=== PATIENT | female | born 1940 | race American Indian/Alaskan Native ===

== ENCOUNTER 2019-05-09 15:38 | Inpatient (IN) | payer MEDICARE ==
--- NOTE | 2019-05-09 16:01 | Event Note ---
ED Screening Note ED Screening Note: pt presents with generalized abdominal pain no N/V/D had small BM yesterday no urinary sx no fever This initial assessment/diagnostic orders/clinical plan/treatment(s) is/are subject to change based on patients health status, clinical progression and re- assessment by fellow clinical providers in the ED. Further treatment and workup at subsequent clinical providers discretion. Patient/guardian urged not to elope from the ED as their condition may be serious if not clinically assessed and managed. Initial orders include: labs, XR, EKG, UA
[2019-05-09 16:39] LABS: Hematocrit 31.2 % (30.3-42.9); Hemoglobin 9.8 gm/dl (10.1-14.3); Mean Corpuscular HGB Conc 31 % (30-34); Mean Corpuscular Volume 76 fl (79-97); Platelet Count 250 K/mm3 (140-440); Red Blood Count 4.13 M/mm3 (3.65-5.03); Red Cell Distribution Width 17.8 % (13.2-15.2)
--- NOTE | 2019-05-09 16:46 | XRay Report ---
ABDOMEN FLAT AND UPRIGHT WITH SINGLE VIEW CHEST HISTORY: generalized abd discomfort, hx of CHF COMPARISON: None. TECHNIQUE: Supine and upright abdominal as well as single view chest radiographs obtained. FINDINGS: Lungs: The lungs are clear. The lung volumes are normal. Pleural Effusion: No evidence of a pleural effusion is seen. Pneumothorax: No evidence of pneumothorax is seen. Cardiac: The heart size is normal. Mediastinal silhouette: The mediastinal silhouette is normal. Hilar regions: The hilar regions are normal in appearance. Pulmonary vascularity: The pulmonary vascularity is normal in appearance. Trachea: The trachea is midline. Skeletal structures: No acute findings. Support hardware: None. Additional findings: None. Bowel: The bowel gas pattern is normal in appearance. No evidence of obstruction is seen. No evidence of free air is identified. Calcifications: No abnormal calcifications over the kidneys or along the course of the ureters are se en. No phleboliths in the pelvis are seen. Osseous Structures: The skeletal structures are unremarkable in appearance. Additional findings: None. IMPRESSION: No acute findings. Signer Name: Jeromy Chávez MD Signed: 05/09/2019 4:42 PM Workstation Name: [id number]
[2019-05-09 17:05] LABS: Albumin 3.5 g/dL (3.9-5); Calcium 9.8 mg/dL (8.4-10.2)
[2019-05-09] MEDS ORDERED: NACL 0.9% 1000 ML 1,000 ML IV ONE ×2 (17:29→19:06)
[2019-05-09] MEDS ORDERED: D50W (25GM) Vial IV ONE (17:29)
[2019-05-09] MEDS ORDERED: HumuLIN R IV ONE (17:29)
[2019-05-09] MEDS ORDERED: PROVENTIL IH ONE (17:30)
[2019-05-09] MEDS ORDERED: KIONEX PO ONE (17:30)
[2019-05-09 17:49] LABS: Chol/HDL Ratio 2.85 %
--- NOTE | 2019-05-09 17:55 | Emergency Department Report ---
<ZACKARY WATTERS - Last Filed: 05/10/19 00:28> ED Abdominal Pain HPI - General Chief Complaint: Abdominal Pain Stated Complaint: ABD PAIN Time Seen by Provider: 05/09/19 15:59 - Related Data Home Medications Medication Instructions Recorded Confirmed Last Taken Allopurinol [Zyloprim] 300 mg PO QDAY 07/29/13 05/09/19 05/09/19 Amitriptyline [Elavil] 25 mg PO QHS 07/29/13 05/09/19 05/08/19 Aspirin [Aspirin BABY CHEW TAB] 81 mg PO QDAY 07/29/13 05/09/19 05/09/19 Atorvastatin [Lipitor] 40 mg PO QHS 07/29/13 05/09/19 05/09/19 ISOSORBIDE MONOnitrate [Monoket] 20 mg PO DAILY 07/29/13 05/09/19 05/09/19 Levothyroxine [Synthroid] 100 mcg PO QAM 07/29/13 05/09/19 05/09/19 Losartan [Cozaar] 50 mg PO QDAY 07/29/13 05/09/19 05/09/19 Metoprolol [Lopressor TAB] 50 mg PO BID 07/29/13 05/09/19 05/09/19 Nitroglycerin [Nitrostat] 0.4 mg SL Q5M PRN 07/29/13 05/09/19 05/09/19 Furosemide [Lasix] 20 mg PO DAILY 11/24/14 05/09/19 05/09/19 Zolpidem [Ambien] 5 mg PO QHS PRN 11/24/14 05/09/19 05/09/19 hydroCHLOROthiazide [Hctz] 25 mg PO QDAY 11/24/14 05/09/19 05/09/19 Previous Rx's Medication Instructions Recorded Last Taken Type Oxycodone HCl/Acetaminophen 1 each PO Q6HR PRN #30 tablet 11/24/14 05/09/19 Rx [Percocet 10-325 mg] Meloxicam [Mobic] 7.5 mg PO QDAY #7 tablet 01/26/19 05/09/19 Rx methOCARBAMOL [Robaxin TAB] 500 mg PO BID #10 tab 01/26/19 05/09/19 Rx Allergies Allergy/AdvReac Type Severity Reaction Status Date / Time No Known Allergies Allergy Verified 05/09/19 15:38 ED Past Medical Hx - Medications Home Medications: Home Medications Medication Instructions Recorded Confirmed Last Taken Type Allopurinol [Zyloprim] 300 mg PO QDAY 07/29/13 05/09/19 05/09/19 History Amitriptyline [Elavil] 25 mg PO QHS 07/29/13 05/09/19 05/08/19 History Aspirin [Aspirin BABY CHEW TAB] 81 mg PO QDAY 07/29/13 05/09/19 05/09/19 History Atorvastatin [Lipitor] 40 mg PO QHS 07/29/13 05/09/19 05/09/19 History ISOSORBIDE MONOnitrate [Monoket] 20 mg PO DAILY 07/29/13 05/09/19 05/09/19 History Levothyroxine [Synthroid] 100 mcg PO QAM 07/29/13 05/09/19 05/09/19 History Losartan [Cozaar] 50 mg PO QDAY 07/29/13 05/09/19 05/09/19 History Metoprolol [Lopressor TAB] 50 mg PO BID 07/29/13 05/09/19 05/09/19 History Nitroglycerin [Nitrostat] 0.4 mg SL Q5M PRN 07/29/13 05/09/19 05/09/19 History Furosemide [Lasix] 20 mg PO DAILY 11/24/14 05/09/19 05/09/19 History Oxycodone HCl/Acetaminophen 1 each PO Q6HR PRN #30 tablet 11/24/14 05/09/19 05/09/19 Rx [Percocet 10-325 mg] Zolpidem [Ambien] 5 mg PO QHS PRN 11/24/14 05/09/19 05/09/19 History hydroCHLOROthiazide [Hctz] 25 mg PO QDAY 11/24/14 05/09/19 05/09/19 History Meloxicam [Mobic] 7.5 mg PO QDAY #7 tablet 01/26/19 05/09/19 05/09/19 Rx methOCARBAMOL [Robaxin TAB] 500 mg PO BID #10 tab 01/26/19 05/09/19 05/09/19 Rx ED Course - Consultations Consultation #1: 08/21/19 20:39 Spoke w/ radiologist. Reports free air on CT adjacent to liver, likely duodenal or gastric ulcer. Dr Jimenez paged. 05/10/19 20:45 Spoke w/ Dr Jimenez. Would like repeat CT w/ PO contrast. 05/10/19 00:27 Spoke w/ Dr Jimenez regarding 2nd CT results. ED Medical Decision Making - Lab Data Result diagrams: 05/09/19 16:16 05/09/19 19:58 ED Disposition Clinical Impression: Acute renal failure, Acute hyperkalemia, Elevated troponin, Perforated abdominal viscus Disposition: OP ADMIT IP TO THIS HOSP Is pt being admited?: Yes Condition: Stable <NINI SAENZ - Last Filed: 05/10/19 10:09> ED Abdominal Pain HPI - General Source: patient Mode of arrival: Ambulatory Limitations: No Limitations - History of Present Illness Initial Comments: Patient is 79 years old female with history of hypertension and diabetes. Patient presented to the ER complaining of abdominal pain started 5 days ago, crampy in nature associated with nausea but no vomiting or diarrhea. Patient denied any fever or chills. Patient found to have a potassium of 6 and creatinine of 2.9 and a BUN of 71. Patient immediately received calcium chlori de, dextrose 50 and insulin, Kayexalate and albuterol breathing treatment for treatment of hyperkalemia. MD Complaint: abdominal pain -: days(s) Location: diffuse Radiation: none Migration to: no migration Severity scale (0 -10): 5 ED Review of Systems ROS: Stated complaint: ABD PAIN Other details as noted in HPI Comment: All other systems reviewed and negative Constitutional: denies: chills, fever ENT: denies: throat pain Cardiovascular: denies: chest pain Gastrointestinal: abdominal pain, nausea. denies: vomiting, diarrhea, constipation, hematemesis, melena, hematochezia Musculoskeletal: denies: back pain Neurological: denies: headache, weakness, numbness, paresthesias, confusion ED Past Medical Hx - Past Medical History Hx Hypertension: Yes Hx Heart Attack/AMI: Yes Hx Congestive Heart Failure: Yes Hx GERD: Yes Hx Psychiatric Treatment: Yes (anxiety) Additional medical history: hypothyroid, insommnia anemic, gout, high cholest - Surgical History Additional Surgical History: r) shoulder surg, hysterectomy - Social History Smoking Status: Never Smoker Substance Use Type: None ED Physical Exam - General Limitations: No Limitations General appearance: alert, in no apparent distress - Head Head exam: Present: atraumatic, normocephalic, normal inspection - Eye Eye exam: Present: normal appearance, PERRL - ENT ENT exam: Present: normal exam, normal orophraynx, mucous membranes moist - Neck Neck exam: Present: normal inspection, full ROM. Absent: tenderness, meningismus, lymphadenopathy, thyromegaly - Respiratory Respiratory exam: Present: normal lung sounds bilaterally - Cardiovascular Cardiovascular Exam: Present: regular rate, normal rhythm, normal heart sounds - GI/Abdominal GI/Abdominal exam: Present: soft, normal bowel sounds. Absent: distended, tenderness, guarding, rebound, rigid, organomegaly, mass, bruit, pulsatile mass, hernia - Extremities Exam Extremities exam: Present: normal inspection, full ROM, normal capillary refill. Absent: tenderness, pedal edema, calf tenderness - Back Exam Back exam: Present: normal inspection, full ROM. Absent: CVA tenderness (R), CVA tenderness (L), muscle spasm, paraspinal tenderness, vertebral tenderness - Neurological Exam Neurological exam: Present: alert - Psychiatric Psychiatric exam: Present: normal mood - Skin Skin exam: Present: warm, intact, normal color ED Course Vital Signs 05/09/19 05/09/19 05/09/19 16:00 18:01 18:54 Temperature 97.7 F Pulse Rate 60 74 Pulse Rate [ 83 Anterior Bilateral Throughout] Respiratory 18 19 Rate Respiratory 20 Rate [Anterior Bilateral Throughout] Blood Pressure 140/63 144/65 Blood Pressure [Left] O2 Sat by Pulse 97 97 Oximetry 05/09/19 05/09/19 05/09/19 19:01 19:35 20:00 Temperature 98 F Pulse Rate 86 86 91 H Pulse Rate [ Anterior Bilateral Throughout] Respiratory 19 18 16 Rate Respiratory Rate [Anterior Bilateral Throughout] Blood Pressure 144/65 161/68 Blood Pressure 161/84 [Left] O2 Sat by Pulse 98 100 99 Oximetry 05/09/19 05/09/19 05/09/19 21:00 22:00 23:09 Temperature Pulse Rate 92 H 89 90 Pulse Rate [ Anterior Bilateral Throughout] Respiratory 19 20 21 Rate Respiratory Rate [Anterior Bilateral Throughout] Blood Pressure 163/75 169/80 169/80 Blood Pressure [Left] O2 Sat by Pulse 92 92 97 Oximetry 05/09/19 05/09/19 05/09/19 23:11 23:20 23:31 Temperature Pulse Rate 93 H 81 78 Pulse Rate [ Anterior Bilateral Throughout] Respiratory 16 26 H 22 Rate Respiratory Rate [Anterior Bilateral Throughout] Blood Pressure 169/80 148/58 145/64 Blood Pressure [Left] O2 Sat by Pulse 95 98 98 Oximetry 05/09/19 05/09/19 05/10/19 23:41 23:50 00:01 Temperature Pulse Rate 78 78 76 Pulse Rate [ Anterior Bilateral Throughout] Respiratory 20 20 22 Rate Respiratory Rate [Anterior Bilateral Throughout] Blood Pressure 141/69 142/63 147/50 Blood Pressure [Left] O2 Sat by Pulse 97 96 97 Oximetry 05/10/19 05/10/19 05/10/19 00:11 00:20 00:31 Temperature Pulse Rate 83 Pulse Rate [ Anterior Bilateral Throughout] Respiratory 19 Rate Respiratory Rate [Anterior Bilateral Throughout] Blood Pressure 147/50 142/63 142/63 Blood Pressure [Left] O2 Sat by Pulse 96 98 96 Oximetry 05/10/19 05/10/19 05/10/19 00:41 00:53 01:01 Temperature Pulse Rate 80 78 Pulse Rate [ Anterior Bilateral Throughout] Respiratory 14 24 Rate Respiratory Rate [Anterior Bilateral Throughout] Blood Pressure 142/63 142/63 142/63 Blood Pressure [Left] O2 Sat by Pulse 95 Oximetry 05/10/19 05/10/19 05/10/19 01:11 01:21 01:50 Temperature Pulse Rate 78 77 Pulse Rate [ Anterior Bilateral Throughout] Respiratory 21 21 18 Rate Respiratory Rate [Anterior Bilateral Throughout] Blood Pressure 142/63 142/63 Blood Pressure [Left] O2 Sat by Pulse 98 Oximetry 05/10/19 01:56 Temperature 98.3 F Pulse Rate 77 Pulse Rate [ Anterior Bilateral Throughout] Respiratory 18 Rate Respiratory Rate [Anterior Bilateral Throughout] Blood Pressure 166/75 Blood Pressure [Left] O2 Sat by Pulse 94 Oximetry ED Medical Decision Making - Lab Data Result diagrams: 05/10/19 09:22 05/09/19 19:58 - Radiology Data Radiology results: report reviewed - Medical Decision Making Patient is 79 years old female with history of hypertension and diabetes. Patient presented to the ER complaining of abdominal pain started 5 days ago, crampy in nature associated with nausea but no vomiting or diarrhea. Patient denied any fever or chills. Patient found to have a potassium of 6 and creatinine of 2.9 and a BUN of 71. Patient immediately received calcium chloride, dextrose 50 and insulin, Kayexalate and albuterol breathing treatment for treatment of hyperkalemia. I discussed the patient is Dr. Quezada, nephrology, he advised to continue medical treatment and will follow-up with the patient in the morning. Critical Care Time: Yes Critical care time in (mins) excluding proc time.: 30 Critical care attestation.: If time is entered above; I have spent that time in minutes in the direct care of this critically ill patient, excluding procedure time. ED Disposition Is pt being admited?: Yes
[2019-05-09] MEDS ORDERED: CALCIUM CHLORIDE 1,000 MG in NACL 0.9% 100 ML IV ONE (18:00)
[2019-05-09] MEDS ORDERED: D50W (25GM) Syringe IV ONE (18:00)
[2019-05-09 20:29] LABS: Anisocytosis 1+; Basophils % (Manual) 0 % (0.0-1.8); Eosinophils % (Manual) 0 % (0.0-4.3); Total Cells Counted 100
[2019-05-09 20:30] LABS: Hypochromasia 2+; Ovalocytes 1+; Platelet Estimate Consistent w Auto; Schistocytes 1+
--- NOTE | 2019-05-09 20:36 | Cat Scan Report ---
CT ABDOMEN AND PELVIS WITHOUT CONTRAST HISTORY: Abdominal pain. COMPARISON: CT of the abdomen and pelvis on 07/29/2013. TECHNIQUE: Routine abdominal and pelvic CT exam performed without contrast. Lack of intravenous cont rast limits evaluation of the vascular and solid organs.. All CT scans at this location are performed using CT dose reduction for ALARA by means of automated exposure control. FINDINGS: CT ABDOMEN: Lung Bases: Trace subsegmental atelectasis in the right lower lobe. Liver: No significant abnormality. Biliary: No significant abnormality. Spleen: No significant abnormality. Unenlarged. Pancreas: No significant abnormality. Adrenals: No significant abnormality. Kidneys: No significant abnormality. Lymphatics: No lymphadenopathy. Vasculature: Atherosclerotic but nonaneurysmal abdominal aorta. Bowel/Peritoneum: There is a small amount of free air adjacent to the gallbladder and along the infer ior margin of the liver. There is also a small amount of free fluid in the abdomen. No definite focal inflammatory changes are identified. There is no pneumatosis or bowel obstruction. CT PELVIC: : No significant abnormality. Lymphatics: No lymphadenopathy. Osseous Structures: No aggressive appearing osseous lesions. Additional Findings: None IMPRESSION: 1. Small amount free air adjacent to the gallbladder and along the inferior margin of the liver joey rning for possible perforated viscus, probable distal gastric or duodenal ulcer. Signer Name: Jeromy Chávez MD Signed: 05/09/2019 8:32 PM Workstation Name: [id number]
[2019-05-09] MEDS ORDERED: ZOFRAN IV ONE (20:50)
[2019-05-09] MEDS ORDERED: MORPHINE IV ONE (20:50)
[2019-05-09] MEDS ORDERED: ZOSYN/NS 4.5GM/100ML 4.5 GM/100 ML VIAL IV ONE (21:14)
--- NOTE | 2019-05-09 21:15 | Event Note ---
Date: 05/09/[address] Shaffer. Pt is stable. Pain is stable. Not increasing. Problem began 3 days ago. CBC unremarkable. CT has focal collection of air. I am suspicious that she may have had a small perforation and then sealed it off. Will redo CT with oral contrast. If there is a leak, will proceed to OR tonight for Dx laparoscopy. If no leak, then will place NGT, IV Abx, and admit to Medicine for resuscitation. Full set of labs in AM. Dr. Shaffer will call if CT report indicates leak.
[2019-05-09 21:20] LABS: Calcium 10.3 mg/dL (8.4-10.2)
--- NOTE | 2019-05-09 23:53 | Cat Scan Report ---
CT abdomen pelvis wo con INDICATION / CLINICAL INFORMATION: Abdominal pain and free air seen on previous CT. TECHNIQUE: Oral Gastrografin was administered. All CT scans at this location are performed using CT dose reducti on for ALARA by means of automated exposure control. COMPARISON: Earlier today at 7:25 PM. FINDINGS: ABDOMEN: There is a linear extraluminal contrast collection along the inferior margin of the left lob e of the liver near the ligamentum teres. This appears to connect with the duodenal bulb. There is as sociated mucosal thickening involving the duodenal bulb and descending duodenum. Extraluminal gas in the cole hepatis is again noted. No other change is seen. PELVIS: There is a fat-containing periumbilical hernia without complication. No new abnormality is se en in the pelvis. IMPRESSION:This study confirms bowel perforation with extraluminal contrast noted along the inferior aspect of the left lobe of the liver, probably related to a perforated duodenal ulcer. Signer Name: Davion Valdez MD Signed: 05/09/2019 11:49 PM Workstation Name: [id number]
--- NOTE | 2019-05-10 00:26 | Event Note ---
Date: 05/10/[address] For the large amount of contrast that is present in the duodenum, there is only a trace amount that leaked out. Therefore, there is only a very minimal opening. The patient continues to be stable per Dr. Shaffer. Will continue with plan for admission and resuscitation. Pt will also need IV PPI.
[2019-05-10] MEDS ORDERED: MORPHINE IV PRN (00:48)
[2019-05-10] MEDS ORDERED: TYLENOL PO PRN (00:48)
[2019-05-10] MEDS ORDERED: SODIUM CHLORIDE FLUSH SYRINGE 10 ML IV PRN (00:48)
[2019-05-10] MEDS ORDERED: ZOFRAN IV PRN (00:48)
[2019-05-10] MEDS ORDERED: HumuLIN R IV ONE (00:51)
[2019-05-10] MEDS ORDERED: D50W (25GM) Syringe IV ONE (00:56)
--- NOTE | 2019-05-10 03:17 | History and Physical Report ---
History of Present Illness Date of examination: 05/10/19 Date of admission: 05/10/19 00:48 Chief complaint: Abdominal pain History of present illness: Patient is a 79-year-old -Portuguese female with history of CAD and GERD who presented to the ED on account of 4 days history of right lower quadrant abdominal pain. She described it as sharp in character, rated 10 over 10, constant in duration and radiating upwards. Pain is worse with food and liquid intake. No known relieving factors. She has associated generalized weakness with easy fatigability, chills without fever and lightheadedness. She also admits to passage of dark stool. She denies constipation, diarrhea, dysuria or frequency. No chest pain, shortness of breath, palpitation, headaches, nausea, vomiting, syncope or loss of consciousness. Past History Past Medical History: CAD, GERD, hypertension, hyperlipidemia, hypothyroidism Past Surgical History: hysterectomy, Other (right shoulder surgery) Social history: no significant social history (she denies tobacco, alcohol or illicit drug use) Family history: diabetes (grandmother) Medications and Allergies Allergies Allergy/AdvReac Type Severity Reaction Status Date / Time No Known Allergies Allergy Verified 05/09/19 15:38 Home Medications Medication Instructions Recorded Confirmed Last Taken Type Allopurinol [Zyloprim] 300 mg PO QDAY 07/29/13 05/09/19 05/09/19 History Amitriptyline [Elavil] 25 mg PO QHS 07/29/13 05/09/19 05/08/19 History Aspirin [Aspirin BABY CHEW TAB] 81 mg PO QDAY 07/29/13 05/09/19 05/09/19 History Atorvastatin [Lipitor] 40 mg PO QHS 07/29/13 05/09/19 05/09/19 History ISOSORBIDE MONOnitrate [Monoket] 20 mg PO DAILY 07/29/13 05/09/19 05/09/19 History Levothyroxine [Synthroid] 100 mcg PO QAM 07/29/13 05/09/19 05/09/19 History Losartan [Cozaar] 50 mg PO QDAY 07/29/13 05/09/19 05/09/19 History Metoprolol [Lopressor TAB] 50 mg PO BID 07/29/13 05/09/19 05/09/19 History Nitroglycerin [Nitrostat] 0.4 mg SL Q5M PRN 07/29/13 05/09/19 05/09/19 History Furosemide [Lasix] 20 mg PO DAILY 11/24/14 05/09/19 05/09/19 History Oxycodone HCl/Acetaminophen 1 each PO Q6HR PRN #30 tablet 11/24/14 05/09/19 05/09/19 Rx [Percocet 10-325 mg] Zolpidem [Ambien] 5 mg PO QHS PRN 11/24/14 05/09/19 05/09/19 History hydroCHLOROthiazide [Hctz] 25 mg PO QDAY 11/24/14 05/09/19 05/09/19 History Meloxicam [Mobic] 7.5 mg PO QDAY #7 tablet 01/26/19 05/09/19 05/09/19 Rx methOCARBAMOL [Robaxin TAB] 500 mg PO BID #10 tab 01/26/19 05/09/19 05/09/19 Rx Active Meds: Active Medications Acetaminophen (Tylenol) 650 mg PO Q4H PRN PRN Reason: Pain MILD(1-3)/Fever >100.5/VALERA Famotidine (Pepcid) 10 mg IV BID [facility] Heparin Sodium (Porcine) (Heparin) 5,000 unit SUB-Q Q12HR JACIEL Hydralazine HCl (Apresoline) 10 mg IV Q4HR PRN PRN Reason: Blood Pressure Piperacillin Sod/Tazobactam Sod (Zosyn/Ns 3.375gm/50ml) 3.375 gm in 50 mls @ 100 mls/hr IV Q8HR JACIEL; Protocol Sodium Chloride (Nacl 0.9% 1000 Ml) 1,000 mls @ 125 mls/hr IV DIRECT JACIEL Morphine Sulfate (Morphine) 2 mg IV Q4H PRN PRN Reason: Pain, Moderate (4-6) Ondansetron HCl (Zofran) 4 mg IV Q8H PRN PRN Reason: Nausea And Vomiting Sodium Chloride (Sodium Chloride Flush Syringe 10 Ml) 10 ml IV BID [facility] Sodium Chloride (Sodium Chloride Flush Syringe 10 Ml) 10 ml IV PRN PRN PRN Reason: LINE FLUSH Review of Systems All systems: negative (all other systems reviewed with the patient and are negative unless otherwise stated) Exam - Constitutional Vitals: Temp Pulse Resp BP Pulse Ox 98.2 F 88 18 147/50 99 05/10/19 02:04 05/10/19 02:04 05/10/19 02:04 05/10/19 02:04 05/10/19 02:04 General appearance: Present: no acute distress, obese - EENT Eyes: Present: PERRL, EOM intact ENT: hearing intact, clear oral mucosa - Neck Neck: Present: supple, normal ROM - Respiratory Respiratory effort: normal Respiratory: bilateral: CTA - Cardiovascular Rhythm: regular Heart Sounds: Present: S1 & S2. Absent: rub, click - Extremities Extremity abnormal: edema (trace edema noted in bilateral lower extremities) Peripheral Pulses: within normal limits - Abdominal General gastrointestinal: Present: soft, tender (right lower and upper quadrants, epigastric, and umbilical), non-distended, normal bowel sounds Female genitourinary: Present: deferred - Integumentary Integumentary: Present: clear, warm, dry - Musculoskeletal Musculoskeletal: gait normal, strength equal bilaterally - Psychiatric Psychiatric: appropriate mood/affect, intact judgment & insight - Neurologic Neurologic: CNII-XII intact, moves all extremities Results - Labs CBC & Chem 7: 05/09/19 16:16 05/09/19 19:58 Labs: Laboratory Last Values WBC 6.8 K/mm3 (4.5-11.0) 05/09/19 16:16 RBC 4.13 M/mm3 (3.65-5.03) 05/09/19 16:16 Hgb 9.8 gm/dl (10.1-14.3) L 05/09/19 16:16 Hct 31.2 % (30.3-42.9) 05/09/19 16:16 MCV 76 fl (79-97) L 05/09/19 16:16 MCH 24 pg (28-32) L 05/09/19 16:16 MCHC 31 % (30-34) 05/09/19 16:16 RDW 17.8 % (13.2-15.2) H 05/09/19 16:16 Plt Count 250 K/mm3 (140-440) 05/09/19 16:16 Add Manual Diff Complete 05/09/19 16:16 Total Counted 100 05/09/19 16:16 Seg Neuts % (Manual) 71.0 % (40.0-70.0) H 05/09/19 16:16 0 % 05/09/19 16:16 27.0 % (13.4-35.0) 05/09/19 16:16 Reactive Lymphs % (Man) 0 % 05/09/19 16:16 2.0 % (0.0-7.3) 05/09/19 16:16 0 % (0.0-4.3) 05/09/19 16:16 0 % (0.0-1.8) 05/09/19 16:16 0 % 05/09/19 16:16 0 % 05/09/19 16:16 0 % 05/09/19 16:16 0 % 05/09/19 16:16 Nucleated RBC % Not Reportable 05/09/19 16:16 Seg Neutrophils # Man 4.8 K/mm3 (1.8-7.7) 05/09/19 16:16 Band Neutrophils # 0.0 K/mm3 05/09/19 16:16 1.8 K/mm3 (1.2-5.4) 05/09/19 16:16 Abs React Lymphs (Man) 0.0 K/mm3 05/09/19 16:16 0.1 K/mm3 (0.0-0.8) 05/09/19 16:16 0.0 K/mm3 (0.0-0.4) 05/09/19 16:16 0.0 K/mm3 (0.0-0.1) 05/09/19 16:16 0.0 K/mm3 05/09/19 16:16 0.0 K/mm3 05/09/19 16:16 0.0 K/mm3 05/09/19 16:16 Blast Cells # 0.0 K/mm3 05/09/19 16:16 WBC Morphology Not Reportable 05/09/19 16:16 Hypersegmented Neuts Not Reportable 05/09/19 16:16 Hyposegmented Neuts Not Reportable 05/09/19 16:16 Hypogranular Neuts Not Reportable 05/09/19 16:16 Not Reportable 05/09/19 16:16 Not Reportable 05/09/19 16:16 Not Reportable 05/09/19 16:16 Not Reportable 05/09/19 16:16 Not Reportable 05/09/19 16:16 Not Reportable 05/09/19 16:16 Consistent w auto 05/09/19 16:16 Not Reportable 05/09/19 16:16 Plt Clumps, EDTA Not Reportable 05/09/19 16:16 Not Reportable 05/09/19 16:16 Not Reportable 05/09/19 16:16 Not Reportable 05/09/19 16:16 Plt Morphology Comment Not Reportable 05/09/19 16:16 RBC Morphology Not Reportable 05/09/19 16:16 Dimorphic RBCs Not Reportable 05/09/19 16:16 Not Reportable 05/09/19 16:16 2+ 05/09/19 16:16 Not Reportable 05/09/19 16:16 1+ 05/09/19 16:16 Not Reportable 05/09/19 16:16 Not Reportable 05/09/19 16:16 Not Reportable 05/09/19 16:16 Not Reportable 05/09/19 16:16 Not Reportable 05/09/19 16:16 Not Reportable 05/09/19 16:16 Not Reportable 05/09/19 16:16 1+ 05/09/19 16:16 Not Reportable 05/09/19 16:16 Not Reportable 05/09/19 16:16 Not Reportable 05/09/19 16:16 Not Reportable 05/09/19 16:16 Not Reportable 05/09/19 16:16 Not Reportable 05/09/19 16:16 1+ 05/09/19 16:16 Acanthocytes (Spur) Not Reportable 05/09/19 16:16 Rouleaux Not Reportable 05/09/19 16:16 Not Reportable 05/09/19 16:16 1+ 05/09/19 16:16 Not Reportable 05/09/19 16:16 Not Reportable 05/09/19 16:16 Hem Pathologist Commnt No 05/09/19 16:16 Sodium 134 mmol/L (137-145) L 05/09/19 19:58 Potassium 5.7 mmol/L (3.6-5.0) H 05/09/19 19:58 Chloride 102.8 mmol/L (98-107) 05/09/19 19:58 Carbon Dioxide 17 mmol/L (22-30) L 05/09/19 19:58 20 mmol/L 05/09/19 19:58 BUN 68 mg/dL (7-17) H 05/09/19 19:58 2.7 mg/dL (0.7-1.2) H 05/09/19 19:58 Estimated GFR 21 ml/min 05/09/19 19:58 25 % 05/09/19 19:58 Glucose 93 mg/dL (65-100) 05/09/19 19:58 POC Glucose 75 (70-105) 05/09/19 18:36 Calcium 10.3 mg/dL (8.4-10.2) H 05/09/19 19:58 0.40 mg/dL (0.1-1.2) 05/09/19 16:16 AST 52 units/L (5-40) H 05/09/19 16:16 ALT 70 units/L (7-56) H 05/09/19 16:16 166 units/L (35-129) H 05/09/19 16:16 0.175 ng/mL (0.00-0.029) H* 05/09/19 16:16 NT-Pro-B Natriuret Pep 585.0 pg/mL (0-900) 05/09/19 16:16 7.4 g/dL (6.3-8.2) 05/09/19 16:16 3.5 g/dL (3.9-5) L 05/09/19 16:16 0.9 % 05/09/19 16:16 Triglycerides 110 mg/dL (2-149) 05/09/19 16:16 Cholesterol 114 mg/dL (50-199) 05/09/19 16:16 66 mg/dL (50-130) 05/09/19 16:16 40 mg/dL (40-59) 05/09/19 16:16 2.85 % 05/09/19 16:16 32 units/L (13-60) 05/09/19 16:16 - Imaging and Cardiology CT scan - abdomen: report reviewed CT scan - pelvis: report reviewed Assessment and Plan Assessment and plan: Bowel perforation -Probably 2/2 perforated duodenal ulcer -NG tube in place for bowel decompression -On IV Protonix and antibiotic -Monitor H&H -Surgery consulted in the ED Acute on CKD stage 3 -On IV fluid, we'll monitor creatinine level Hyperkalemia -Status post treatment in the ED -We'll monitor K level and continue treatment as needed Elevated troponin -Probably demand ischemia due to the acute process -Patient denies acute chest pain -We'll continue serial troponin level monitoring -We'll order echocardiogram Hyponatremia -On IV fluid, will monitor sodium level Transaminitis -Likely secondary to the acute process -On IV fluid, we'll monitor levels Mild Hypocalcemia -On IV fluid, will monitor calcium level Hypertension -BP stable -On PRN IV hydralazine Hyperlipidemia -Will hold statin since patient is NPO Hypothyroidism -Will hold synthroid since patient is NPO Obesity with BMI of 38.8 -Lifestyle modification recommended DVT prophylaxis with SCD Disposition: Patient will be admitted in inpatient status with plan for discharge when medically stable Time spent: 40 minutes
[2019-05-10] MEDS: NACL 0.9% 1000 ML 1,000 ML IV SCH ×3 (04:06→19:42)
[2019-05-10] MEDS: PROTONIX IV SCH ×3 (04:08→22:46)
[2019-05-10 06:51] LABS: Bilirubin,Urine NEG (Negative); Blood,Urine NEG (Negative); Color,Urine Straw (Yellow); Protein,Urine <15 mg/dL mg/dL (Negative); Urobilinogen,Urine < 2.0 mg/dL (<2.0)
--- NOTE | 2019-05-10 09:14 | Consultation ---
History of Present Illness Consult date: 05/10/19 Reason for consult: abdominal pain Requesting physician: ZACKARY WATTERS Chief complaint: right sided abdominal pain since Tuesday - History of present illness History of present illness: 79yo F with GERD and CAD presents with a three-day history of upper and right- sided abdominal pain. It began on Tuesday of this week. Denies any fevers or chills. Did have nausea. He was able to drink water yesterday but in limited amounts. Attempts at eating increased her pain. She had a bowel movement yesterday and all night after the oral contrast. She does not feel bloated. He r pain is better today than when she presented to the emergency room and also compared to Tuesday when the pain started. The pain is localized to the right side of the abdomen. She only takes a baby aspirin on a regular basis. Does not regularly use other NSAIDs. Past History Past Medical History: CAD, GERD, hypertension, hyperlipidemia, hypothyroidism Past Surgical History: hysterectomy, Other (right shoulder surgery) Social history: no significant social history (she denies tobacco, alcohol or illicit drug use) Family history: diabetes (grandmother) Medications and Allergies Allergies Allergy/AdvReac Type Severity Reaction Status Date / Time No Known Allergies Allergy Verified 05/09/19 15:38 Home Medications Medication Instructions Recorded Confirmed Last Taken Type Allopurinol [Zyloprim] 300 mg PO QDAY 07/29/13 05/09/19 05/09/19 History Amitriptyline [Elavil] 25 mg PO QHS 07/29/13 05/09/19 05/08/19 History Aspirin [Aspirin BABY CHEW TAB] 81 mg PO QDAY 07/29/13 05/09/19 05/09/19 History Atorvastatin [Lipitor] 40 mg PO QHS 07/29/13 05/09/19 05/09/19 History ISOSORBIDE MONOnitrate [Monoket] 20 mg PO DAILY 07/29/13 05/09/19 05/09/19 History Levothyroxine [Synthroid] 100 mcg PO QAM 07/29/13 05/09/19 05/09/19 History Losartan [Cozaar] 50 mg PO QDAY 07/29/13 05/09/19 05/09/19 History Metoprolol [Lopressor TAB] 50 mg PO BID 1105/09/19 05/09/19 History Nitroglycerin [Nitrostat] 0.4 mg SL Q5M PRN 07/29/13 05/09/19 05/09/19 History Furosemide [Lasix] 20 mg PO DAILY 11/24/14 05/09/19 05/09/19 History Oxycodone HCl/Acetaminophen 1 each PO Q6HR PRN #30 tablet 11/24/14 05/09/19 05/09/19 Rx [Percocet 10-325 mg] Zolpidem [Ambien] 5 mg PO QHS PRN 11/24/14 05/09/19 05/09/19 History hydroCHLOROthiazide [Hctz] 25 mg PO QDAY 11/24/14 05/09/19 05/09/19 History Meloxicam [Mobic] 7.5 mg PO QDAY #7 tablet 01/26/19 05/09/19 05/09/19 Rx methOCARBAMOL [Robaxin TAB] 500 mg PO BID #10 tab 01/26/19 05/09/19 05/09/19 Rx Active Meds: Active Medications Acetaminophen (Tylenol) 650 mg PO Q4H PRN PRN Reason: Pain MILD(1-3)/Fever >100.5/VALERA Hydralazine HCl (Apresoline) 10 mg IV Q4HR PRN PRN Reason: Blood Pressure Piperacillin Sod/Tazobactam Sod (Zosyn/Ns 3.375gm/50ml) 3.375 gm in 50 mls @ 100 mls/hr IV Q8H JACIEL; Protocol Sodium Chloride (Nacl 0.9% 1000 Ml) 1,000 mls @ 125 mls/hr IV DIRECT JACIEL Last Admin: 05/10/19 04:06 Dose: 125 mls/hr Documented by: Morphine Sulfate (Morphine) 2 mg IV Q4H PRN PRN Reason: Pain, Moderate (4-6) Ondansetron HCl (Zofran) 4 mg IV Q8H PRN PRN Reason: Nausea And Vomiting Pantoprazole Sodium (Protonix) 40 mg IV BID [facility] Last Admin: 05/10/19 04:08 Dose: 40 mg Documented by: Sodium Chloride (Sodium Chloride Flush Syringe 10 Ml) 10 ml IV BID [facility] Sodium Chloride (Sodium Chloride Flush Syringe 10 Ml) 10 ml IV PRN PRN PRN Reason: LINE FLUSH Review of Systems - Constitutional no fever, no chills, no chronic pain - Cardiovascular no chest pain, no shortness of breath - Respiratory no cough - Gastrointestinal abdominal pain, nausea, no hematemesis, no coffee ground emesis, no dyspepsia/bloating - Genitourinary Genitourinary: flank pain (right) Menstruation: post hysterectomy - Muskuloskeletal no low back pain - Integumentary no rash, no pruritis, no redness, no sores, no wounds Exam Vital Signs Temp Pulse Resp BP Pulse Ox 97.7 F 60 18 140/63 97 05/09/19 16:00 05/09/19 16:00 05/09/19 16:00 05/09/19 16:00 05/09/19 16:00 - General physical appearance Positive: no distress, no pain, other (pleasant, elderly woman. At times difficult to understand her speech due to low volume. Does not appear septic.) - Eyes Positive: normal occular movement. Negative: icteric - ENT Positive: other (NGT in place. Minimal light yellow drainage) - Respiratory Positive: normal expansion, normal respiratory effort, clear to auscultation - Cardiovascular Rhythm: regular Heart Sounds: Present: systolic murmur - Abdomen Abdomen: Present: soft, tender (mainly on right side. No tenderness in LUQ. Minimal in LLQ), bowel sounds hypoactive. Absent: distended, masses, rebound, guarding, rigid, wound - Integumentary no rash, no growths, no abnormal pigmentation - Neurologic Neurologic: alert and oriented to time, place and person - Psychiatric Psychiatric: appropriate mood/affect, intact judgment & insight, cooperative Results - Labs 05/10/19 09:22 05/10/19 09:22 Abnormal lab results 05/09/19 05/09/19 05/09/19 Range/Units 16:16 16:16 19:58 Hgb 9.8 L (10.1-14.3) gm/dl MCV 76 L (79-97) fl MCH 24 L (28-32) pg RDW 17.8 H (13.2-15.2) % Seg Neuts % (Manual) 71.0 H (40.0-70.0) % Sodium 132 L 134 L (137-145) mmol/L Potassium 6.0 H 5.7 H (3.6-5.0) mmol/L Carbon Dioxide 17 L (22-30) mmol/L BUN 71 H 68 H (7-17) mg/dL Creatinine 2.9 H 2.7 H (0.7-1.2) mg/dL Calcium 10.3 H (8.4-10.2) mg/dL AST 52 H (5-40) units/L ALT 70 H (7-56) units/L Alkaline Phosphatase 166 H (35-129) units/L Troponin T 0.175 H* (0.00-0.029) ng/mL Albumin 3.5 L (3.9-5) g/dL 05/10/19 05/10/19 Range/Units 04:24 06:19 Hgb (10.1-14.3) gm/dl MCV (79-97) fl MCH (28-32) pg RDW (13.2-15.2) % Seg Neuts % (Manual) (40.0-70.0) % Sodium (137-145) mmol/L Potassium (3.6-5.0) mmol/L Carbon Dioxide (22-30) mmol/L BUN (7-17) mg/dL Creatinine (0.7-1.2) mg/dL Calcium (8.4-10.2) mg/dL AST (5-40) units/L ALT (7-56) units/L Alkaline Phosphatase (35-129) units/L Troponin T 0.099 H 0.131 H* D (0.00-0.029) ng/mL Albumin (3.9-5) g/dL Diabetes panel 05/09/19 05/09/19 Range/Units 16:16 19:58 Sodium 132 L 134 L (137-145) mmol/L Potassium 6.0 H 5.7 H (3.6-5.0) mmol/L Chloride 99.1 102.8 (98-107) mmol/L Carbon Dioxide 22 17 L (22-30) mmol/L BUN 71 H 68 H (7-17) mg/dL Creatinine 2.9 H 2.7 H (0.7-1.2) mg/dL Glucose 100 93 (65-100) mg/dL Calcium 9.8 10.3 H (8.4-10.2) mg/dL AST 52 H (5-40) units/L ALT 70 H (7-56) units/L Alkaline Phosphatase 166 H (35-129) units/L Total Protein 7.4 (6.3-8.2) g/dL Albumin 3.5 L (3.9-5) g/dL Triglycerides 110 (2-149) mg/dL HDL Cholesterol 40 (40-59) mg/dL Calcium panel 05/09/19 05/09/19 Range/Units 16:16 19:58 Calcium 9.8 10.3 H (8.4-10.2) mg/dL Albumin 3.5 L (3.9-5) g/dL Pituitary panel 05/09/19 05/09/19 Range/Units 16:16 19:58 Sodium 132 L 134 L (137-145) mmol/L Potassium 6.0 H 5.7 H (3.6-5.0) mmol/L Chloride 99.1 102.8 (98-107) mmol/L Carbon Dioxide 22 17 L (22-30) mmol/L BUN 71 H 68 H (7-17) mg/dL Creatinine 2.9 H 2.7 H (0.7-1.2) mg/dL Glucose 100 93 (65-100) mg/dL Calcium 9.8 10.3 H (8.4-10.2) mg/dL Adrenal panel 05/09/19 05/09/19 Range/Units 16:16 19:58 Sodium 132 L 134 L (137-145) mmol/L Potassium 6.0 H 5.7 H (3.6-5.0) mmol/L Chloride 99.1 102.8 (98-107) mmol/L Carbon Dioxide 22 17 L (22-30) mmol/L BUN 71 H 68 H (7-17) mg/dL Creatinine 2.9 H 2.7 H (0.7-1.2) mg/dL Glucose 100 93 (65-100) mg/dL Calcium 9.8 10.3 H (8.4-10.2) mg/dL Total Bilirubin 0.40 (0.1-1.2) mg/dL AST 52 H (5-40) units/L ALT 70 H (7-56) units/L Alkaline Phosphatase 166 H (35-129) units/L Total Protein 7.4 (6.3-8.2) g/dL Albumin 3.5 L (3.9-5) g/dL - Imaging CT scan - abdomen: report reviewed, image reviewed CT scan - pelvis: report reviewed, image reviewed Assessment and Plan - Patient Problems (1) Perforated abdominal viscus Current Visit: Yes Status: Acute Plan to address problem: Pt stable. Presumably had a peptic ulcer perforation. Patient is clinically stable. Does not have an acute abdomen. Pain is better compared to yesterday and Tuesday. We'll continue with conservative management for now. Rec: 1) NPO and NGT 2) If there are no worsening of her condition, will do UGI test on Tuesday. If no leak, will remove NGT and start clears. 3) If she decompensates, will proceed to surgery. 4) IV Abx and PPI 5) Pain control Pt in agreement with plan. Will follow along. Please call with questions. time=30min
[2019-05-10 09:56] LABS: Hematocrit 31.2 % (30.3-42.9); Hemoglobin 9.8 gm/dl (10.1-14.3); Mean Corpuscular HGB Conc 31 % (30-34); Mean Corpuscular Volume 76 fl (79-97); Platelet Count 235 K/mm3 (140-440); Red Blood Count 4.12 M/mm3 (3.65-5.03); Red Cell Distribution Width 17.6 % (13.2-15.2)
[2019-05-10] MEDS ORDERED: PEPCID IV SCH (10:00)
[2019-05-10] MEDS ORDERED: HEPARIN SUB-Q SCH (10:00)
[2019-05-10 10:12] LABS: Calcium 9.7 mg/dL (8.4-10.2)
[2019-05-10] MEDS: SODIUM CHLORIDE FLUSH SYRINGE 10 ML IV SCH ×2 (10:20→22:47)
[2019-05-10] MEDS: ZOSYN/NS 3.375GM/50ML 3.375 GM/50 ML BAG IV SCH ×2 (10:25→18:45)
[2019-05-10 11:03] LABS: Anisocytosis 1+; Basophils % (Manual) 0 % (0.0-1.8); Eosinophils % (Manual) 0 % (0.0-4.3); Hypochromasia 1+; Ovalocytes 1+; Total Cells Counted 100
[2019-05-10 11:04] LABS: Platelet Estimate Consistent w Auto
--- NOTE | 2019-05-10 15:46 | Event Note ---
Date: 05/10/19 I stopped by for a routine check. Patient was sleeping. Appeared comfortable. Vital signs remained normal.
--- NOTE | 2019-05-10 17:23 | Event Note ---
Date: 05/10/19 Routine check. Patient is awake and watching TV. She looks better. Appears to have more energy. She reports that her pain is less. She has no needs at this time.
--- NOTE | 2019-05-10 18:33 | Consultation ---
History of Present Illness - Reason for Consult Consult date: 05/10/19 acute renal failure Requesting physician: NINI SAENZ - History of Present Illness 79-year-old lady with a history of hypertension coronary artery disease unclear if she has any baseline chronic disease. Patient presents on account of 5 days history of abdominal pain. Describes Pain as crampy / sharp pain which is generalized and nonradiating associated with nausea. No vomiting or diarrhea. No hematemesis, melena or hematochezia. No fever or chills. Patient presented to the hospital and had a CT scan of the abdomen and pelvis which suggested bowel perforation with transluminal contrast along the inferior left lobe of the liver suggesting a perforated duodenal ulcer. Labs showed elevated BUNs/creatinine at 71/2.9 mg/dL. Potassium was high at 6 mmols/L and sodium low at 132 mmol per liter. Bicarbonate was also low at 17 mmols per liter. Patient was on Lasix 20 mg daily, hydrochlorothiazide 25 mg daily, losartan and also allopurinol. She was also on meloxicam but she ran out for at least a week. She was taking it daily for athritis. I'm consulted to assist in chris ging renal failure and fluid and electrolyte abnormalities. Patient denies any voiding difficulties except for urgency and incontinence. No frequency, dysuria or hematuria. No history of kidney stones or recurrent infections. Past History Past Medical History: CAD, GERD, hypertension, hyperlipidemia, hypothyroidism Past Surgical History: hysterectomy, Other (right shoulder surgery) Social history: lives with family (lives with daughter. originally from [place]). denies: smoking, alcohol abuse, prescription drug abuse, IV drug use Family history: diabetes (Grandmother), stroke (mother of a stroke at age 84), other (father of conditions of COPD. 2 brothers. One of lung cancer. 3 sisters have she does not know the cause of ) Medications and Allergies Allergies Allergy/AdvReac Type Severity Reaction Status Date / Time No Known Allergies Allergy Verified 05/09/19 15:38 Home Medications Medication Instructions Recorded Confirmed Last Taken Type Allopurinol [Zyloprim] 300 mg PO QDAY 07/29/13 05/09/19 05/09/19 History Amitriptyline [Elavil] 25 mg PO QHS 07/29/13 05/09/19 05/08/19 History Aspirin [Aspirin BABY CHEW TAB] 81 mg PO QDAY 07/29/13 05/09/19 05/09/19 History Atorvastatin [Lipitor] 40 mg PO QHS 07/29/13 05/09/19 05/09/19 History ISOSORBIDE MONOnitrate [Monoket] 20 mg PO DAILY 07/29/13 05/09/19 05/09/19 History Levothyroxine [Synthroid] 100 mcg PO QAM 07/29/13 05/09/19 05/09/19 History Losartan [Cozaar] 50 mg PO QDAY 07/29/13 05/09/19 05/09/19 History Metoprolol [Lopressor TAB] 50 mg PO BID 07/29/13 05/09/19 05/09/19 History Nitroglycerin [Nitrostat] 0.4 mg SL Q5M PRN 07/29/13 05/09/19 05/09/19 History Furosemide [Lasix] 20 mg PO DAILY 11/24/14 05/09/19 05/09/19 History Oxycodone HCl/Acetaminophen 1 each PO Q6HR PRN #30 tablet 11/24/14 05/09/19 05/09/19 Rx [Percocet 10-325 mg] Zolpidem [Ambien] 5 mg PO QHS PRN 11/24/14 05/09/19 05/09/19 History hydroCHLOROthiazide [Hctz] 25 mg PO QDAY 11/24/14 05/09/19 05/09/19 History Meloxicam [Mobic] 7.5 mg PO QDAY #7 tablet 01/26/19 05/09/19 05/09/19 Rx methOCARBAMOL [Robaxin TAB] 500 mg PO BID #10 tab 01/26/19 05/09/19 05/09/19 Rx Active Meds: Active Medications Acetaminophen (Tylenol) 650 mg PO Q4H PRN PRN Reason: Pain MILD(1-3)/Fever >100.5/VALERA Hydralazine HCl (Apresoline) 10 mg IV Q4HR PRN PRN Reason: Blood Pressure Piperacillin Sod/Tazobactam Sod (Zosyn/Ns 3.375gm/50ml) 3.375 gm in 50 mls @ 100 mls/hr IV Q8H [facility]; Protocol Last Admin: 05/10/19 10:25 Dose: 100 mls/hr Documented by: Sodium Chloride (Nacl 0.9% 1000 Ml) 1,000 mls @ 125 mls/hr IV DIRECT JACIEL Last Admin: 05/10/19 09:21 Dose: 125 mls/hr Documented by: Morphine Sulfate (Morphine) 2 mg IV Q4H PRN PRN Reason: Pain, Moderate (4-6) Last Admin: 05/10/19 10:16 Dose: 2 mg Documented by: Ondansetron HCl (Zofran) 4 mg IV Q8H PRN PRN Reason: Nausea And Vomiting Pantoprazole Sodium (Protonix) 40 mg IV BID [facility] Last Admin: 05/10/19 10:20 Dose: 40 mg Documented by: Sodium Chloride (Sodium Chloride Flush Syringe 10 Ml) 10 ml IV BID [facility] Last Admin: 05/10/19 10:20 Dose: 10 ml Documented by: Sodium Chloride (Sodium Chloride Flush Syringe 10 Ml) 10 ml IV PRN PRN PRN Reason: LINE FLUSH Review of Systems All systems: negative (Constitutional: no fever or chills. Admits to poor appetite. ? weight loss. HEENT: No sore throat admits to sinus drainage no hearing or vision impairment . Cardiovascular: No chest pain, admits to shortness of breath, palpitations and lower extremity swelling. No dizziness. Respiratory: Admits to cough which is nonproductive. No hemoptysis or wheezing. Gastrointestinal: See history of present illness. Genitourinary: See history of present illness hematologic: No abnormal bleeding or bruising. Integumentary: no pruritus or rash. Neurological: No headache admits to right-sided weakness. No numbness, no syncope or seizures. Endocrine: Admits to cold intolerance. No heat intolerance. Musculoskeletal: Admits to joint pains in her knees, hip and back no stiffness. Psychiatry: no anxiety or depression) Exam - Vital Signs Vital signs: Vital Signs Temp Pulse Resp BP Pulse Ox 97.7 F 60 18 140/63 97 05/09/19 16:00 05/09/19 16:00 05/09/19 16:00 05/09/19 16:00 05/09/19 16:00 - Physical Exam Narrative exam: Elderly -[place] female lying in bed in no acute distress HEENT: NCAT, pink and dry oral mucous membrane Neck: Supple, no venous distention CVS: S1S2 RRR with no murmur, rub or gallop Chest: Clear to auscultation Abdomen: Obese, soft, mild tenderness in epigastrium, no organomegaly, bowel sounds are present Extremities: No edema, no clubbing Genitourinary deferred Neuro: Awake, alert no focal deficits Results - Lab Results 05/11/19 05:21 05/11/19 05:21 Most recent lab results Calcium 9.7 mg/dL (8.4-10.2) 05/10/19 09:22 Phosphorus 3.70 mg/dL (2.5-4.5) 05/10/19 02:30 Magnesium 1.30 mg/dL (1.7-2.3) L 05/10/19 09:22 Assessment and Plan - Patient Problems (1) Acute kidney injury with acute tubular necrosis Current Visit: Yes Status: Acute Plan to address problem: Acute kidney injury probably acute tumor necrosis secondary to volume de pletion/sepsis. Get urine studies. Continue volume resuscitation. Follow-up electrolytes and renal function. (2) Hyperkalemia Current Visit: Yes Status: Acute Plan to address problem: Patient was given a dose of Kayexalate. Repeat potassium (3) Hyponatremia Current Visit: Yes Status: Acute Plan to address problem: Probably hypovolemic and may also be related to thiazide diuretic. Volume repletion with isotonic saline. Follow sodium (4) Metabolic acidosis Current Visit: Yes Status: Acute Plan to address problem: Continue for resuscitation. Follow acid-base status (5) Elevated transaminase level Current Visit: Yes Status: Acute Plan to address problem: Question ischemic hepatitis. Follow up liver function tests. Check hepatitis serologies. (6) Anemia Current Visit: Yes Status: Acute Plan to address problem: Check iron stores. Follow-up hemoglobin. (7) Perforated abdominal viscus Current Visit: Yes Status: Acute Plan to address problem: Management by general surgeon (8) Chronic kidney disease Current Visit: Yes Status: Acute Plan to address problem: Suspected chronic kidney disease stage unknown. Will need old records
[2019-05-11] MEDS: ZOSYN/NS 3.375GM/50ML 3.375 GM/50 ML BAG IV SCH ×3 (01:48→19:31)
[2019-05-11 05:40] LABS: Hematocrit 27.5 % (30.3-42.9); Hemoglobin 8.6 gm/dl (10.1-14.3); Mean Corpuscular HGB Conc 31 % (30-34); Mean Corpuscular Volume 74 fl (79-97); Platelet Count 215 K/mm3 (140-440); Red Blood Count 3.69 M/mm3 (3.65-5.03); Red Cell Distribution Width 17.8 % (13.2-15.2)
[2019-05-11 07:02] LABS: Albumin 2.8 g/dL (3.9-5)
[2019-05-11 07:49] LABS: Total Cells Counted 100
[2019-05-11 07:50] LABS: Anisocytosis 1+; Band Neutrophils # (Manual) 0.1 K/mm3; Basophils % (Manual) 0 % (0.0-1.8); Hypochromasia 1+; Ovalocytes 1+; Sickle Cells Few; Target Cells Few
[2019-05-11 07:51] LABS: Platelet Estimate Consistent w Auto; Tear Drop Cells Few
[2019-05-11] MEDS: PROTONIX IV SCH ×2 (11:28→22:54)
[2019-05-11] MEDS: SODIUM CHLORIDE FLUSH SYRINGE 10 ML IV SCH ×2 (11:28→22:56)
--- NOTE | 2019-05-11 13:43 | Progress Note ---
Assessment and Plan - Patient Problems (1) Perforated abdominal viscus Current Visit: Yes Status: Acute Plan to address problem: Pt stable. Presumably had a peptic ulcer perforation. Patient is clinically stable. Pain has resolved. We'll continue with conservative management for now. Rec: 1) NPO and NGT 2) If there are no worsening of her condition, will do UGI test on Tuesday. If no leak, will remove NGT and start clears. 3) If she decompensates, will proceed to surgery. 4) IV Abx and PPI 5) Pain control Pt in agreement with plan. Will follow along. Please call with questions. time=10min Subjective Date of service: 05/11/19 Patient Reports: Positive: no new complaints, feels better, pain is less (no pain today), flatus. Negative: nausea, vomiting Objective Vital Signs - 12hr 05/11/19 05/11/19 05/11/19 03:28 07:50 10:00 Temperature 97.6 F 98.0 F Pulse Rate 76 72 Respiratory 18 18 Rate Blood Pressure 149/69 139/60 O2 Sat by Pulse 96 94 99 Oximetry - General physical appearance no distress, no pain, other (looks well) - Respiratory normal expansion, normal respiratory effort - Abdomen soft, not tender, not distended, not guarding, not rigid - Integumentary no rash, no growths, no abnormal pigmentation - Psychiatric oriented to time, oriented to person, oriented to place, speech is normal, memory intact - Labs 05/11/19 05:21 05/11/19 05:21 Diabetes panel 05/11/19 Range/Units 05:21 Sodium 138 (137-145) mmol/L Potassium 5.0 (3.6-5.0) mmol/L Chloride 106.9 (98-107) mmol/L Carbon Dioxide 20 L (22-30) mmol/L BUN 52 H (7-17) mg/dL Creatinine 2.6 H (0.7-1.2) mg/dL Glucose 93 (65-100) mg/dL Calcium 9.0 (8.4-10.2) mg/dL AST 20 (5-40) units/L ALT 35 (7-56) units/L Alkaline Phosphatase 101 (35-129) units/L Total Protein 6.0 L (6.3-8.2) g/dL Albumin 2.8 L (3.9-5) g/dL Calcium panel 05/11/19 Range/Units 05:21 Calcium 9.0 (8.4-10.2) mg/dL Albumin 2.8 L (3.9-5) g/dL Pituitary panel 05/11/19 Range/Units 05:21 Sodium 138 (137-145) mmol/L Potassium 5.0 (3.6-5.0) mmol/L Chloride 106.9 (98-107) mmol/L Carbon Dioxide 20 L (22-30) mmol/L BUN 52 H (7-17) mg/dL Creatinine 2.6 H (0.7-1.2) mg/dL Glucose 93 (65-100) mg/dL Calcium 9.0 (8.4-10.2) mg/dL Adrenal panel 05/11/19 Range/Units 05:21 Sodium 138 (137-145) mmol/L Potassium 5.0 (3.6-5.0) mmol/L Chloride 106.9 (98-107) mmol/L Carbon Dioxide 20 L (22-30) mmol/L BUN 52 H (7-17) mg/dL Creatinine 2.6 H (0.7-1.2) mg/dL Glucose 93 (65-100) mg/dL Calcium 9.0 (8.4-10.2) mg/dL Total Bilirubin 0.60 (0.1-1.2) mg/dL AST 20 (5-40) units/L ALT 35 (7-56) units/L Alkaline Phosphatase 101 (35-129) units/L Total Protein 6.0 L (6.3-8.2) g/dL Albumin 2.8 L (3.9-5) g/dL
--- NOTE | 2019-05-11 15:51 | Progress Note ---
Assessment and Plan Assessment and Plan Assessment and plan: Bowel perforation -Probably 2/2 perforated duodenal ulcer -NG tube in place for bowel decompression -On IV Protonix and antibiotic -Monitor H&H -Conservative Tx Surgery if necessary Acute on CKD stage 3 -On IV fluid, we'll monitor creatinine level Hyperkalemia -Status post treatment in the ED -We'll monitor K level and continue treatment as needed Elevated troponin -Probably demand ischemia due to the acute process -Patient denies acute chest pain -We'll continue serial troponin level monitoring -We'll order echocardiogram Hyponatremia -On IV fluid, will monitor sodium level Transaminitis -Likely secondary to the acute process -On IV fluid, we'll monitor levels Mild Hypocalcemia -On IV fluid, will monitor calcium level Hypertension -BP stable -On PRN IV hydralazine Hyperlipidemia -Will hold statin since patient is NPO Hypothyroidism -Will hold synthroid since patient is NPO Obesity with BMI of 38.8 -Lifestyle modification recommended DVT prophylaxis with SCD Subjective Date of service: 05/11/19 Principal diagnosis: RLQ pain 4 days Interval history: Patient is a 79-year-old -[place] female with history of CAD and GERD who presented to the ED on account of 4 days history of right lower quadrant abdominal pain. She described it as sharp in character, rated 10 over 10, constant in duration and radiating upwards. Pain is worse with food and liquid intake. No known relieving factors. She has associated generalized weakness with easy fatigability, chills without fever and lightheadedness. She also admits to passage of dark stool. She denies constipation, diarrhea, dysuria or frequency. No chest pain, shortness of breath, palpitation, headaches, nausea, vomiting, syncope or loss of consciousness. Objective - Constitutional Vitals: Vital Signs - 12hr 05/11/19 05/11/19 07:50 10:00 Temperature 98.0 F Pulse Rate 72 Respiratory 18 Rate Blood Pressure 139/60 O2 Sat by Pulse 94 99 Oximetry General appearance: Present: no acute distress, well-nourished - EENT Eyes: PERRL, EOM intact ENT: hearing intact, clear oral mucosa Ears: bilateral: normal - Neck Neck: supple, normal ROM - Respiratory Respiratory effort: normal Respiratory: bilateral: CTA - Breasts Breasts: normal - Cardiovascular Rhythm: regular Heart Sounds: Present: S1 & S2. Absent: gallop, rub Extremities: pulses intact, No edema, normal color, Full ROM - Gastrointestinal General gastrointestinal: Present: soft, non-tender, non-distended, normal bowel sounds - Genitourinary Female genitourinary: normal - Integumentary Integumentary: clear, warm, dry - Musculoskeletal Musculoskeletal: 1, strength equal bilaterally - Neurologic Neurologic: moves all extremities - Psychiatric Psychiatric: memory intact, appropriate mood/affect, intact judgment & insight - Labs CBC & Chem 7: 05/11/19 05:21 05/11/19 05:21 Labs: Abnormal lab results 05/11/19 05/11/19 Range/Units 05:21 05:21 WBC 13.0 H (4.5-11.0) K/mm3 Hgb 8.6 L (10.1-14.3) gm/dl Hct 27.5 L (30.3-42.9) % MCV 74 L (79-97) fl MCH 23 L (28-32) pg RDW 17.8 H (13.2-15.2) % Seg Neuts % (Manual) 81.0 H (40.0-70.0) % Seg Neutrophils # Man 10.5 H (1.8-7.7) K/mm3 Carbon Dioxide 20 L (22-30) mmol/L BUN 52 H (7-17) mg/dL Creatinine 2.6 H (0.7-1.2) mg/dL Total Protein 6.0 L (6.3-8.2) g/dL Albumin 2.8 L (3.9-5) g/dL
--- NOTE | 2019-05-11 17:36 | Progress Note ---
Assessment and Plan - Patient Problems (1) Acute kidney injury with acute tubular necrosis Current Visit: Yes Status: Acute Plan to address problem: Acute kidney injury probably acute tumor necrosis secondary to volume depletion/sepsis. Follow up urine studies. Continue volume repletion. Follow- up electrolytes and renal function. (2) Hyperkalemia Current Visit: Yes Status: Acute Plan to address problem: Potassium has improved with medical treatment. Follow potassium (3) Hyponatremia Current Visit: Yes Status: Acute Plan to address problem: Sodium was improved with volume repletion with isotonic saline. Follow sodium (4) Metabolic acidosis Current Visit: Yes Status: Acute Plan to address problem: Continue for resuscitation. Follow acid-base status (5) Elevated transaminase level Current Visit: Yes Status: Acute Plan to address problem: Question ischemic hepatitis. Follow up liver function tests. (6) Anemia Current Visit: Yes Status: Acute Plan to address problem: Check iron stores. Follow-up hemoglobin. (7) Perforated abdominal viscus Current Visit: Yes Status: Acute Plan to address problem: Management by general surgeon (8) Chronic kidney disease Current Visit: Yes Status: Acute Plan to address problem: Suspected chronic kidney disease stage unknown. Will request old records from primary care physician Dr. Sargent Subjective Date of service: 05/11/19 Principal diagnosis: RLQ pain 4 days Interval history: Patient seen lying in bed. Daughter at bedside. Abdominal pain is better. No nausea or vomiting. No diarrhea. No fever or chills Objective - Exam Narrative Exam: Elderly -[place] female lying in bed in no acute distress HEENT: NCAT, pink and dry oral mucous membrane Neck: Supple, no venous distention CVS: S1S2 RRR with no murmur, rub or gallop Chest: Clear to auscultation Abdomen: Obese, soft, mild tenderness in epigastrium, no organomegaly, bowel sounds are present Extremities: No edema, no clubbing Genitourinary deferred Neuro: Awake, alert no focal deficits - Vital Signs Vital signs: Vital Signs - 12hr 05/11/19 05/11/19 05/11/19 07:50 10:00 11:32 Temperature 98.0 F 98.0 F Pulse Rate 72 72 Respiratory 18 18 Rate Blood Pressure 139/60 147/77 O2 Sat by Pulse 94 99 96 Oximetry 05/11/19 15:54 Temperature 97.9 F Pulse Rate 74 Respiratory 18 Rate Blood Pressure 152/75 O2 Sat by Pulse 93 Oximetry - Lab 05/11/19 05:21 05/11/19 05:21 Most recent lab results Calcium 9.0 mg/dL (8.4-10.2) 05/11/19 05:21 Phosphorus 3.70 mg/dL (2.5-4.5) 05/10/19 02:30 Magnesium 1.30 mg/dL (1.7-2.3) L 05/10/19 09:22 Medications & Allergies - Medications Allergies/Adverse Reactions: Allergies No Known Allergies Allergy (Verified 05/09/19 15:38) Home Medications: Home Medications Medication Instructions Recorded Confirmed Last Taken Type Allopurinol [Zyloprim] 300 mg PO QDAY 07/29/13 05/09/19 05/09/19 History Amitriptyline [Elavil] 25 mg PO QHS 07/29/13 05/09/19 05/08/19 History Aspirin [Aspirin BABY CHEW TAB] 81 mg PO QDAY 07/29/13 05/09/19 05/09/19 History Atorvastatin [Lipitor] 40 mg PO QHS 07/29/13 05/09/19 05/09/19 History ISOSORBIDE MONOnitrate [Monoket] 20 mg PO DAILY 07/29/13 05/09/19 05/09/19 History Levothyroxine [Synthroid] 100 mcg PO QAM 07/29/13 05/09/19 05/09/19 History Losartan [Cozaar] 50 mg PO QDAY 07/29/13 05/09/19 05/09/19 History Metoprolol [Lopressor TAB] 50 mg PO BID 07/29/13 05/09/19 05/09/19 History Nitroglycerin [Nitrostat] 0.4 mg SL Q5M PRN 07/29/13 05/09/19 05/09/19 History Furosemide [Lasix] 20 mg PO DAILY 11/24/14 05/09/19 05/09/19 History Oxycodone HCl/Acetaminophen 1 each PO Q6HR PRN #30 tablet 11/24/14 05/09/19 05/09/19 Rx [Percocet 10-325 mg] Zolpidem [Ambien] 5 mg PO QHS PRN 11/24/14 05/09/19 05/09/19 History hydroCHLOROthiazide [Hctz] 25 mg PO QDAY 11/24/14 05/09/19 05/09/19 History Meloxicam [Mobic] 7.5 mg PO QDAY #7 tablet 01/26/19 05/09/19 05/09/19 Rx methOCARBAMOL [Robaxin TAB] 500 mg PO BID #10 tab 01/26/19 05/09/19 05/09/19 Rx Active Medications: Generic Name Dose Route Start Last Admin Trade Name Freq PRN Reason Stop Dose Admin Acetaminophen 650 mg 05/10/19 00:48 Tylenol PO Q4H PRN Pain MILD(1-3)/Fever >100.5/VALERA Hydralazine HCl 10 mg 05/10/19 03:11 Apresoline IV Q4HR PRN Blood Pressure Piperacillin Sod/Tazobactam Sod 3.375 gm in 50 mls @ 100 mls/hr 05/10/19 10:00 05/11/19 11:28 Zosyn/Ns 3.375gm/50ml IV 100 mls/hr Q8H JACIEL Administration Protocol Sodium Chloride 1,000 mls @ 125 mls/hr 05/10/19 04:00 05/10/19 19:42 Nacl 0.9% 1000 Ml IV 125 mls/hr DIRECT JACIEL Administration Morphine Sulfate 2 mg 05/10/19 00:48 05/10/19 10:16 Morphine IV 2 mg Q4H PRN Administration Pain, Moderate (4-6) Ondansetron HCl 4 mg 05/10/19 00:48 Zofran IV Q8H PRN Nausea And Vomiting Pantoprazole Sodium 40 mg 05/10/19 04:00 05/11/19 11:28 Protonix IV 40 mg BID JACIEL Administration Sodium Chloride 10 ml 05/10/19 10:00 05/11/19 11:28 Sodium Chloride Flush Syringe 10 Ml IV 10 ml BID JACIEL Administration Sodium Chloride 10 ml 05/10/19 00:48 Sodium Chloride Flush Syringe 10 Ml IV PRN PRN LINE FLUSH
[2019-05-11] MEDS: APRESOLINE IV PRN (22:55)
[2019-05-12] MEDS: NACL 0.9% 1000 ML 1,000 ML IV SCH ×2 (01:13→12:48)
[2019-05-12] MEDS: ZOSYN/NS 3.375GM/50ML 3.375 GM/50 ML BAG IV SCH ×4 (01:13→22:00)
[2019-05-12 07:07] LABS: Hematocrit 26.5 % (30.3-42.9); Hemoglobin 8.5 gm/dl (10.1-14.3); Mean Corpuscular HGB Conc 32 % (30-34); Mean Corpuscular Volume 75 fl (79-97); Platelet Count 240 K/mm3 (140-440); Red Blood Count 3.54 M/mm3 (3.65-5.03); Red Cell Distribution Width 17.8 % (13.2-15.2)
[2019-05-12 07:32] LABS: Albumin 2.8 g/dL (3.9-5); Calcium 9.2 mg/dL (8.4-10.2)
[2019-05-12] MEDS: PROTONIX IV SCH ×2 (10:12→22:00)
[2019-05-12] MEDS: SODIUM CHLORIDE FLUSH SYRINGE 10 ML IV SCH (10:13)
[2019-05-12 10:34] LABS: Anisocytosis 1+; Band Neutrophils # (Manual) 0.3 K/mm3; Basophils % (Manual) 0 % (0.0-1.8); Hypochromasia 1+; Total Cells Counted 100
[2019-05-12 10:35] LABS: Ovalocytes 1+; Target Cells Few
--- NOTE | 2019-05-12 11:10 | Progress Note ---
Assessment and Plan - Patient Problems (1) Acute kidney injury with acute tubular necrosis Current Visit: Yes Status: Acute Plan to address problem: Acute kidney injury probably acute tumor necrosis secondary to volume depletion/sepsis. Kidney function is marginally better. Continue volume repletion. Follow-up electrolytes and renal function. (2) Hyperkalemia Current Visit: Yes Status: Acute Plan to address problem: Potassium has improved with medical treatment. Follow potassium (3) Hyponatremia Current Visit: Yes Status: Acute Plan to address problem: Sodium has improved with volume repletion with isotonic saline. Follow sodium (4) Metabolic acidosis Current Visit: Yes Status: Acute Plan to address problem: Bicarbonate is still low. Consider sodium bicarbonate if not improving. Follow acid-base status (5) Elevated transaminase level Current Visit: Yes Status: Acute Plan to address problem: Question ischemic hepatitis. Follow up liver function tests. (6) Anemia Current Visit: Yes Status: Acute Plan to address problem: Follow-up hemoglobin. (7) Perforated abdominal viscus Current Visit: Yes Status: Acute Plan to address problem: Management by general surgeon (8) Chronic kidney disease Current Visit: Yes Status: Acute Plan to address problem: Suspected chronic kidney disease stage unknown. Will request old records from primary care physician Dr. Sargent Subjective Date of service: 05/12/19 Principal diagnosis: RLQ pain 4 days Interval history: Patient seen lying in bed. No family at bedside. No Abdominal pain. No nausea or vomiting. No diarrhea. No fever or chills Objective - Exam Narrative Exam: Elderly -Mexican female lying in bed in no acute distress HEENT: NCAT, pink and dry oral mucous membrane Neck: Supple, no venous distention CVS: S1S2 RRR with no murmur, rub or gallop Chest: Clear to auscultation Abdomen: Obese, soft, nontender, no organomegaly, bowel sounds are present Extremities: No edema, no clubbing Genitourinary deferred Neuro: Awake, alert no focal deficits - Vital Signs Vital signs: Vital Signs - 12hr 05/12/19 05/12/19 04:00 08:12 Temperature 983 F H 98.3 F Pulse Rate 86 79 Respiratory 15 18 Rate Blood Pressure 158/69 Blood Pressure 141/67 [Left] O2 Sat by Pulse 96 95 Oximetry - Lab 05/12/19 05:59 05/12/19 05:59 Most recent lab results Calcium 9.2 mg/dL (8.4-10.2) 05/12/19 05:59 Phosphorus 3.30 mg/dL (2.5-4.5) 05/12/19 05:59 Magnesium 1.40 mg/dL (1.7-2.3) L 05/12/19 05:59 Medications & Allergies - Medications Allergies/Adverse Reactions: Allergies No Known Allergies Allergy (Verified 05/09/19 15:38) Home Medications: Home Medications Medication Instructions Recorded Confirmed Last Taken Type Allopurinol [Zyloprim] 300 mg PO QDAY 07/29/13 05/09/19 05/09/19 History Amitriptyline [Elavil] 25 mg PO QHS 07/29/13 05/09/19 05/08/19 History Aspirin [Aspirin BABY CHEW TAB] 81 mg PO QDAY 07/29/13 05/09/19 05/09/19 History Atorvastatin [Lipitor] 40 mg PO QHS 07/29/13 05/09/19 05/09/19 History ISOSORBIDE MONOnitrate [Monoket] 20 mg PO DAILY 07/29/13 05/09/19 05/09/19 History Levothyroxine [Synthroid] 100 mcg PO QAM 07/29/13 05/09/19 05/09/19 History Losartan [Cozaar] 50 mg PO QDAY 07/29/13 05/09/19 05/09/19 History Metoprolol [Lopressor TAB] 50 mg PO BID 07/29/13 05/09/19 05/09/19 History Nitroglycerin [Nitrostat] 0.4 mg SL Q5M PRN 07/29/13 05/09/19 05/09/19 History Furosemide [Lasix] 20 mg PO DAILY 11/24/14 05/09/19 05/09/19 History Oxycodone HCl/Acetaminophen 1 each PO Q6HR PRN #30 tablet 11/24/14 05/09/19 05/09/19 Rx [Percocet 10-325 mg] Zolpidem [Ambien] 5 mg PO QHS PRN 11/24/14 05/09/19 05/09/19 History hydroCHLOROthiazide [Hctz] 25 mg PO QDAY 11/24/14 05/09/19 05/09/19 History Meloxicam [Mobic] 7.5 mg PO QDAY #7 tablet 01/26/19 05/09/19 05/09/19 Rx methOCARBAMOL [Robaxin TAB] 500 mg PO BID #10 tab 01/26/19 05/09/19 05/09/19 Rx Active Medications: Generic Name Dose Route Start Last Admin Trade Name Freq PRN Reason Stop Dose Admin Acetaminophen 650 mg 05/10/19 00:48 Tylenol PO Q4H PRN Pain MILD(1-3)/Fever >100.5/VALERA Hydralazine HCl 10 mg 05/10/19 03:11 05/11/19 22:55 Apresoline IV 10 mg Q4HR PRN Administration Blood Pressure Piperacillin Sod/Tazobactam Sod 3.375 gm in 50 mls @ 100 mls/hr 05/10/19 10:00 05/12/19 10:12 Zosyn/Ns 3.375gm/50ml IV 100 mls/hr Q8H JACIEL Administration Protocol Sodium Chloride 1,000 mls @ 125 mls/hr 05/10/19 04:00 05/12/19 01:13 Nacl 0.9% 1000 Ml IV 125 mls/hr DIRECT JACIEL Administration Morphine Sulfate 2 mg 05/10/19 00:48 05/10/19 10:16 Morphine IV 2 mg Q4H PRN Administration Pain, Moderate (4-6) Ondansetron HCl 4 mg 05/10/19 00:48 Zofran IV Q8H PRN Nausea And Vomiting Pantoprazole Sodium 40 mg 05/10/19 04:00 05/12/19 10:12 Protonix IV 40 mg BID JACIEL Administration Sodium Chloride 10 ml 05/10/19 10:00 05/12/19 10:13 Sodium Chloride Flush Syringe 10 Ml IV 10 ml BID JACIEL Administration Sodium Chloride 10 ml 05/10/19 00:48 Sodium Chloride Flush Syringe 10 Ml IV PRN PRN LINE FLUSH
--- NOTE | 2019-05-12 11:40 | Progress Note ---
Assessment and Plan - Patient Problems (1) Perforated abdominal viscus Current Visit: Yes Status: Acute Plan to address problem: Pt stable. Presumably had a peptic ulcer perforation. Patient is clinically stable. Pain remains resolved. We'll continue with conservative management for now. Rec: 1) NPO and NGT 2) If there are no worsening of her condition, will do UGI test on Tuesday. If no leak, will remove NGT and start clears. 3) If she decompensates, will proceed to surgery. 4) IV Abx and PPI 5) Pain control Pt in agreement with plan. Will follow along. Please call with questions. time=10min Subjective Date of service: 05/12/19 Patient Reports: Positive: no new complaints, feels better (no pain again today), flatus. Negative: nausea, vomiting Objective Vital Signs - 12hr 05/12/19 05/12/19 04:00 08:12 Temperature 983 F H 98.3 F Pulse Rate 86 79 Respiratory 15 18 Rate Blood Pressure 158/69 Blood Pressure 141/67 [Left] O2 Sat by Pulse 96 95 Oximetry - General physical appearance no distress, no pain, other (looks well) - Respiratory normal expansion, normal respiratory effort - Abdomen soft, not tender, not distended, not guarding, not rigid - Psychiatric oriented to time, oriented to person, oriented to place, speech is normal, memory intact - Labs 05/12/19 05:59 05/12/19 05:59 Diabetes panel 05/12/19 Range/Units 05:59 Sodium 143 (137-145) mmol/L Potassium 4.5 (3.6-5.0) mmol/L Chloride 111.6 H (98-107) mmol/L Carbon Dioxide 17 L (22-30) mmol/L BUN 46 H (7-17) mg/dL Creatinine 2.4 H (0.7-1.2) mg/dL Glucose 67 (65-100) mg/dL Calcium 9.2 (8.4-10.2) mg/dL AST 18 (5-40) units/L ALT 28 (7-56) units/L Alkaline Phosphatase 102 (35-129) units/L Total Protein 6.3 (6.3-8.2) g/dL Albumin 2.8 L (3.9-5) g/dL Calcium panel 05/12/19 Range/Units 05:59 Calcium 9.2 (8.4-10.2) mg/dL Phosphorus 3.30 (2.5-4.5) mg/dL Albumin 2.8 L (3.9-5) g/dL Pituitary panel 05/12/19 Range/Units 05:59 Sodium 143 (137-145) mmol/L Potassium 4.5 (3.6-5.0) mmol/L Chloride 111.6 H (98-107) mmol/L Carbon Dioxide 17 L (22-30) mmol/L BUN 46 H (7-17) mg/dL Creatinine 2.4 H (0.7-1.2) mg/dL Glucose 67 (65-100) mg/dL Calcium 9.2 (8.4-10.2) mg/dL Adrenal panel 05/12/19 Range/Units 05:59 Sodium 143 (137-145) mmol/L Potassium 4.5 (3.6-5.0) mmol/L Chloride 111.6 H (98-107) mmol/L Carbon Dioxide 17 L (22-30) mmol/L BUN 46 H (7-17) mg/dL Creatinine 2.4 H (0.7-1.2) mg/dL Glucose 67 (65-100) mg/dL Calcium 9.2 (8.4-10.2) mg/dL Total Bilirubin 0.50 (0.1-1.2) mg/dL AST 18 (5-40) units/L ALT 28 (7-56) units/L Alkaline Phosphatase 102 (35-129) units/L Total Protein 6.3 (6.3-8.2) g/dL Albumin 2.8 L (3.9-5) g/dL
--- NOTE | 2019-05-12 15:53 | Progress Note ---
Assessment and Plan Assessment and Plan Assessment and plan: 1.Bowel perforation ---Pt stable. Presumably had a peptic ulcer perforation. Patient is clinically stable. Pain remains resolved. We'll continue with conservative management for now. Rec: 1) NPO and NGT 2) If there are no worsening of her condition, will do UGI test on Tuesday. If no leak, will remove NGT and start clears. 3) If she decompensates, will proceed to surgery. 4) IV Abx and PPI 5) Pain control Pt in agreement with plan. 2. Acute on CKD stage 3 -On IV fluid, we'll monitor creatinine level 3.Hyperkalemia -Status post treatment in the ED -We'll monitor K level and continue treatment as needed 4. Elevated troponin -Probably demand ischemia due to the acute process -Patient denies acute chest pain -We'll continue serial troponin level monitoring -We'll order echocardiogram 5.Hyponatremia -On IV fluid, will monitor sodium level 6.Transaminitis -Likely secondary to the acute process -On IV fluid, we'll monitor levels 7.Mild Hypocalcemia -On IV fluid, will monitor calcium level 8.Hypertension -BP stable -On PRN IV hydralazine 9.Hyperlipidemia -Will hold statin since patient is NPO 10.Hypothyroidism -Will hold synthroid since patient is NPO 11.Obesity with BMI of 38.8 -Lifestyle modification recommended 12.DVT prophylaxis with SCD And GI priohykaxus Subjective Date of service: 05/12/19 Principal diagnosis: RLQ pain 4 days Interval history: Patient is a 79-year-old -[place] female with history of CAD and GERD who presented to the ED on account of 4 days history of right lower quadrant abdominal pain. She described it as sharp in character, rated 10 over 10, constant in duration and radiating upwards. Pain is worse with food and liquid intake. No known relieving factors. She has associated generalized weakness with easy fatigability, chills without fever and lightheadedness. She also admits to passage of dark stool. She denies constipation, diarrhea, dysuria or frequency. No chest pain, shortness of breath, palpitation, headaches, nausea, vomiting, syncope or loss of consciousness. Objective - Constitutional Vitals: Vital Signs - 12hr 05/12/19 05/12/19 05/12/19 04:00 08:12 11:38 Temperature 983 F H 98.3 F 98.2 F Pulse Rate 86 79 78 Respiratory 15 18 18 Rate Blood Pressure 158/69 156/68 Blood Pressure 141/67 [Left] O2 Sat by Pulse 96 95 96 Oximetry General appearance: Present: no acute distress, well-nourished - EENT Eyes: PERRL, EOM intact ENT: hearing intact, clear oral mucosa Ears: bilateral: normal - Neck Neck: supple, normal ROM - Respiratory Respiratory effort: normal Respiratory: bilateral: CTA - Breasts Breasts: normal - Cardiovascular Heart rate: 78 Rhythm: regular Heart Sounds: Present: S1 & S2. Absent: gallop, rub Extremities: pulses intact, No edema, normal color, Full ROM - Gastrointestinal General gastrointestinal: Present: tender, hypoactive bowel sounds - Genitourinary Female genitourinary: normal - Integumentary Integumentary: clear, warm, dry - Musculoskeletal Musculoskeletal: 1, strength equal bilaterally - Neurologic Neurologic: moves all extremities - Psychiatric Psychiatric: memory intact, appropriate mood/affect, intact judgment & insight - Allied health notes Allied health notes reviewed: nursing, case management - Labs CBC & Chem 7: 05/12/19 05:59 05/12/19 05:59 Labs: Abnormal lab results 05/12/19 05/12/19 Range/Units 05:59 05:59 RBC 3.54 L (3.65-5.03) M/mm3 Hgb 8.5 L (10.1-14.3) gm/dl Hct 26.5 L (30.3-42.9) % MCV 75 L (79-97) fl MCH 24 L (28-32) pg RDW 17.8 H (13.2-15.2) % Seg Neuts % (Manual) 87.0 H (40.0-70.0) % Lymphocytes % (Manual) 7.0 L (13.4-35.0) % Seg Neutrophils # Man 8.6 H (1.8-7.7) K/mm3 Lymphocytes # (Manual) 0.7 L (1.2-5.4) K/mm3 Chloride 111.6 H (98-107) mmol/L Carbon Dioxide 17 L (22-30) mmol/L BUN 46 H (7-17) mg/dL Creatinine 2.4 H (0.7-1.2) mg/dL Magnesium 1.40 L (1.7-2.3) mg/dL Albumin 2.8 L (3.9-5) g/dL
[2019-05-12] MEDS: APRESOLINE IV PRN (17:56)
[2019-05-13] MEDS: ZOSYN/NS 3.375GM/50ML 3.375 GM/50 ML BAG IV SCH ×3 (02:00→18:44)
[2019-05-13 04:40] LABS: Hemoglobin 8.2 gm/dl (10.1-14.3); Mean Corpuscular HGB Conc 33 % (30-34); Mean Corpuscular Volume 74 fl (79-97); Platelet Count 240 K/mm3 (140-440); Red Blood Count 3.39 M/mm3 (3.65-5.03); Red Cell Distribution Width 17.9 % (13.2-15.2)
[2019-05-13 05:13] LABS: Albumin 2.6 g/dL (3.9-5)
[2019-05-13 05:47] LABS: Basophils % (Manual) 0 % (0.0-1.8); Eosinophils % (Manual) 0 % (0.0-4.3); Total Cells Counted 100
[2019-05-13 05:49] LABS: Anisocytosis 1+; Hypochromasia 1+; Target Cells Few
[2019-05-13 05:50] LABS: Ovalocytes Few; Platelet Estimate Consistent w Auto; Tear Drop Cells Rare
[2019-05-13] MEDS: SODIUM CHLORIDE FLUSH SYRINGE 10 ML IV SCH ×2 (10:57→22:09)
[2019-05-13] MEDS: PROTONIX IV SCH ×2 (10:57→22:09)
--- NOTE | 2019-05-13 11:52 | Progress Note ---
Assessment and Plan Assessment and plan: 79F presents with generalized abdominal pain .Bowel perforation ---Pt stable. Presumably had a peptic ulcer perforation. Patient is clinically stable. Pain remains resolved. We'll continue with conservative management for now. per GS, "NPO and NGT, 2) If there are no worsening of her condition, will do UGI test on Tuesday. If no leak, will remove NGT and start clears. 3) If she decompensates, will proceed to surgery. " Acute on CKD stage 3 -On IV fluid, we'll monitor creatinine level .Hyperkalemia -Status post treatment in the ED -We'll monitor K level and continue treatment as needed . Elevated troponin -Probably demand ischemia due to the acute process -Patient denies acute chest pain -We'll continue serial troponin level monitoring -We'll order echocardiogram Hyponatremia -On IV fluid, will monitor sodium level .Transaminitis -Likely secondary to the acute process -On IV fluid, we'll monitor levels Mild Hypocalcemia -On IV fluid, will monitor calcium level .Hypertension -BP stable -On PRN IV hydralazine .Hyperlipidemia -Will hold statin since patient is NPO .Hypothyroidism -Will hold synthroid since patient is NPO .Obesity with BMI of 38.8 -Lifestyle modification recommended .DVT prophylaxis with SCD And GI priohykaxus History Interval history: she says abdominal pain is controlled on pain meds denies cp, sob or fever Hospitalist Physical - Constitutional Vitals: Temp Pulse Resp BP Pulse Ox 98.9 F 66 18 159/59 96 05/13/19 07:40 05/13/19 07:40 05/13/19 07:40 05/13/19 07:40 05/13/19 07:40 General appearance: Present: no acute distress, well-nourished - EENT Eyes: Present: PERRL ENT: hearing intact - Neck Neck: Present: supple - Respiratory Respiratory effort: normal Respiratory: bilateral: CTA - Cardiovascular Rhythm: regular Heart Sounds: Present: S1 & S2 - Extremities Extremities: no ischemia - Abdominal General gastrointestinal: soft - Integumentary Integumentary: Present: clear - Psychiatric Psychiatric: appropriate mood/affect, intact judgment & insight - Neurologic Neurologic: CNII-XII intact, no focal deficits, moves all extremities Results - Labs CBC & Chem 7: 05/13/19 04:13 05/13/19 04:13 Labs: Laboratory Last Values WBC 8.2 K/mm3 (4.5-11.0) 05/13/19 04:13 RBC 3.39 M/mm3 (3.65-5.03) L 05/13/19 04:13 Hgb 8.2 gm/dl (10.1-14.3) L 05/13/19 04:13 Hct 25.0 % (30.3-42.9) L 05/13/19 04:13 MCV 74 fl (79-97) L 05/13/19 04:13 MCH 24 pg (28-32) L 05/13/19 04:13 MCHC 33 % (30-34) 05/13/19 04:13 RDW 17.9 % (13.2-15.2) H 05/13/19 04:13 Plt Count 240 K/mm3 (140-440) 05/13/19 04:13 Add Manual Diff Complete 05/13/19 04:13 Total Counted 100 05/13/19 04:13 Seg Neuts % (Manual) 79.0 % (40.0-70.0) H 05/13/19 04:13 0 % 05/13/19 04:13 19.0 % (13.4-35.0) 05/13/19 04:13 Reactive Lymphs % (Man) 0 % 05/13/19 04:13 2.0 % (0.0-7.3) 05/13/19 04:13 0 % (0.0-4.3) 05/13/19 04:13 0 % (0.0-1.8) 05/13/19 04:13 0 % 05/13/19 04:13 0 % 05/13/19 04:13 0 % 05/13/19 04:13 0 % 05/13/19 04:13 Nucleated RBC % Not Reportable 05/13/19 04:13 Seg Neutrophils # Man 6.5 K/mm3 (1.8-7.7) 05/13/19 04:13 Band Neutrophils # 0.0 K/mm3 05/13/19 04:13 1.6 K/mm3 (1.2-5.4) 05/13/19 04:13 Abs React Lymphs (Man) 0.0 K/mm3 05/13/19 04:13 0.2 K/mm3 (0.0-0.8) 05/13/19 04:13 0.0 K/mm3 (0.0-0.4) 05/13/19 04:13 0.0 K/mm3 (0.0-0.1) 05/13/19 04:13 0.0 K/mm3 05/13/19 04:13 0.0 K/mm3 05/13/19 04:13 0.0 K/mm3 05/13/19 04:13 Blast Cells # 0.0 K/mm3 05/13/19 04:13 WBC Morphology Not Reportable 05/13/19 04:13 Hypersegmented Neuts Not Reportable 05/13/19 04:13 Hyposegmented Neuts Not Reportable 05/13/19 04:13 Hypogranular Neuts Not Reportable 05/13/19 04:13 Not Reportable 05/13/19 04:13 Not Reportable 05/13/19 04:13 Not Reportable 05/13/19 04:13 Not Reportable 05/13/19 04:13 Not Reportable 05/13/19 04:13 Not Reportable 05/13/19 04:13 Consistent w auto 05/13/19 04:13 Not Reportable 05/13/19 04:13 Plt Clumps, EDTA Not Reportable 05/13/19 04:13 Not Reportable 05/13/19 04:13 Not Reportable 05/13/19 04:13 Not Reportable 05/13/19 04:13 Plt Morphology Comment Not Reportable 05/13/19 04:13 RBC Morphology Not Reportable 05/13/19 04:13 Dimorphic RBCs Not Reportable 05/13/19 04:13 Not Reportable 05/13/19 04:13 1+ 05/13/19 04:13 Not Reportable 05/13/19 04:13 1+ 05/13/19 04:13 Not Reportable 05/13/19 04:13 Not Reportable 05/13/19 04:13 Not Reportable 05/13/19 04:13 Not Reportable 05/13/19 04:13 Not Reportable 05/13/19 04:13 Few 05/13/19 04:13 Rare 05/13/19 04:13 Few 05/13/19 04:13 Not Reportable 05/13/19 04:13 Not Reportable 05/13/19 04:13 Not Reportable 05/13/19 04:13 Not Reportable 05/13/19 04:13 Not Reportable 05/13/19 04:13 Not Reportable 05/13/19 04:13 Few 05/13/19 04:13 Acanthocytes (Spur) Not Reportable 05/13/19 04:13 Rouleaux Not Reportable 05/13/19 04:13 Not Reportable 05/13/19 04:13 Not Reportable 05/13/19 04:13 Not Reportable 05/13/19 04:13 Not Reportable 05/13/19 04:13 Hem Pathologist Commnt No 05/13/19 04:13 Sodium 145 mmol/L (137-145) 05/13/19 04:13 Potassium 4.6 mmol/L (3.6-5.0) 05/13/19 04:13 Chloride 114.3 mmol/L (98-107) H 05/13/19 04:13 Carbon Dioxide 17 mmol/L (22-30) L 05/13/19 04:13 18 mmol/L 05/13/19 04:13 BUN 38 mg/dL (7-17) H 05/13/19 04:13 2.1 mg/dL (0.7-1.2) H 05/13/19 04:13 Estimated GFR 28 ml/min 05/13/19 04:13 18 % 05/13/19 04:13 Glucose 64 mg/dL (65-100) L 05/13/19 04:13 POC Glucose 75 (70-105) 05/09/19 18:36 Calcium 9.0 mg/dL (8.4-10.2) 05/13/19 04:13 Phosphorus 3.30 mg/dL (2.5-4.5) 05/12/19 05:59 Magnesium 1.40 mg/dL (1.7-2.3) L 05/12/19 05:59 0.50 mg/dL (0.1-1.2) 05/13/19 04:13 AST 18 units/L (5-40) 05/13/19 04:13 ALT 23 units/L (7-56) 05/13/19 04:13 95 units/L (35-129) 05/13/19 04:13 0.131 ng/mL (0.00-0.029) H* D 05/10/19 06:19 NT-Pro-B Natriuret Pep 585.0 pg/mL (0-900) 05/09/19 16:16 5.9 g/dL (6.3-8.2) L 05/13/19 04:13 2.6 g/dL (3.9-5) L 05/13/19 04:13 0.8 % 05/13/19 04:13 Triglycerides 110 mg/dL (2-149) 05/09/19 16:16 Cholesterol 114 mg/dL (50-199) 05/09/19 16:16 66 mg/dL (50-130) 05/09/19 16:16 40 mg/dL (40-59) 05/09/19 16:16 2.85 % 05/09/19 16:16 32 units/L (13-60) 05/09/19 16:16 Straw (Yellow) 05/10/19 06:38 Clear (Clear) 05/10/19 06:38 5.0 (5.0-7.0) 05/10/19 06:38 Ur Specific [place] 1.014 (1.003-1.030) 05/10/19 06:38 <15 mg/dl mg/dL (Negative) 05/10/19 06:38 Neg mg/dL (Negative) 05/10/19 06:38 Neg mg/dL (Negative) 05/10/19 06:38 Neg (Negative) 05/10/19 06:38 Neg (Negative) 05/10/19 06:38 Neg (Negative) 05/10/19 06:38 < 2.0 mg/dL (<2.0) 05/10/19 06:38 Ur Leukocyte Esterase Neg (Negative) 05/10/19 06:38 2.0 /HPF (0.0-6.0) 05/10/19 06:38 1.0 /HPF (0.0-6.0) 05/10/19 06:38 U Epithel Cells (Auto) 2.0 /HPF (0-13.0) 05/10/19 06:38 Hep Bs Antigen Non-reactive (Negative) 05/12/19 05:59 Non-reactive (NonReactive) 05/12/19 05:59 Active Medications - Current Medications Current Medications: Generic Name Dose Route Start Last Admin Trade Name Freq PRN Reason Stop Dose Admin Acetaminophen 650 mg 05/10/19 00:48 Tylenol PO Q4H PRN Pain MILD(1-3)/Fever >100.5/VALERA Hydralazine HCl 10 mg 05/10/19 03:11 05/12/19 17:56 Apresoline IV 10 mg Q4HR PRN Administration Blood Pressure Piperacillin Sod/Tazobactam Sod 3.375 gm in 50 mls @ 100 mls/hr 05/10/19 10:00 05/13/19 10:59 Zosyn/Ns 3.375gm/50ml IV 100 mls/hr Q8H JACIEL Administration Protocol Sodium Chloride 1,000 mls @ 125 mls/hr 05/10/19 04:00 05/12/19 12:48 Nacl 0.9% 1000 Ml IV 125 mls/hr DIRECT JACIEL Administration Morphine Sulfate 2 mg 05/10/19 00:48 05/10/19 10:16 Morphine IV 2 mg Q4H PRN Administration Pain, Moderate (4-6) Ondansetron HCl 4 mg 05/10/19 00:48 Zofran IV Q8H PRN Nausea And Vomiting Pantoprazole Sodium 40 mg 05/10/19 04:00 05/13/19 10:57 Protonix IV 40 mg BID JACIEL Administration Sodium Chloride 10 ml 05/10/19 10:00 05/13/19 10:57 Sodium Chloride Flush Syringe 10 Ml IV 10 ml BID JACIEL Administration Sodium Chloride 10 ml 05/10/19 00:48 Sodium Chloride Flush Syringe 10 Ml IV PRN PRN LINE FLUSH
--- NOTE | 2019-05-13 12:27 | Progress Note ---
Assessment and Plan - Patient Problems (1) Perforated abdominal viscus Current Visit: Yes Status: Acute Plan to address problem: Pt stable. Presumably had a peptic ulcer perforation. Patient is clinically stable. Pain remains resolved. We'll continue with conservative management for now. will Check CT today as patient looks so good and CBC has been normal for 48 hours now. Rec: 1) NPO and NGT 2) If there are no worsening of her condition, will do Ct test today. If no leak, will remove NGT and start clears. 3) If she decompensates, will proceed to surgery. 4) IV Abx and PPI 5) Pain control Pt in agreement with plan. Will follow along. Please call with questions. time=10min Subjective Date of service: 05/13/19 Patient Reports: Positive: no new complaints, flatus, other (no pain). Negative: nausea, vomiting Objective Vital Signs - 12hr 05/13/19 05/13/19 00:49 07:40 Temperature 98.9 F 98.9 F Pulse Rate 70 66 Respiratory 20 18 Rate Blood Pressure 149/61 159/59 O2 Sat by Pulse 100 96 Oximetry - General physical appearance no distress, no pain, other (looks well. Sitting up on edge of bed) - Eyes normal occular movement - Respiratory normal expansion, normal respiratory effort - Abdomen soft, not tender, not distended, not guarding, not rigid - Psychiatric oriented to time, oriented to person, oriented to place, speech is normal, memory intact - Labs 05/13/19 04:13 05/13/19 04:13 Diabetes panel 05/13/19 Range/Units 04:13 Sodium 145 (137-145) mmol/L Potassium 4.6 (3.6-5.0) mmol/L Chloride 114.3 H (98-107) mmol/L Carbon Dioxide 17 L (22-30) mmol/L BUN 38 H (7-17) mg/dL Creatinine 2.1 H (0.7-1.2) mg/dL Glucose 64 L (65-100) mg/dL Calcium 9.0 (8.4-10.2) mg/dL AST 18 (5-40) units/L ALT 23 (7-56) units/L Alkaline Phosphatase 95 (35-129) units/L Total Protein 5.9 L (6.3-8.2) g/dL Albumin 2.6 L (3.9-5) g/dL Calcium panel 05/13/19 Range/Units 04:13 Calcium 9.0 (8.4-10.2) mg/dL Albumin 2.6 L (3.9-5) g/dL Pituitary panel 05/13/19 Range/Units 04:13 Sodium 145 (137-145) mmol/L Potassium 4.6 (3.6-5.0) mmol/L Chloride 114.3 H (98-107) mmol/L Carbon Dioxide 17 L (22-30) mmol/L BUN 38 H (7-17) mg/dL Creatinine 2.1 H (0.7-1.2) mg/dL Glucose 64 L (65-100) mg/dL Calcium 9.0 (8.4-10.2) mg/dL Adrenal panel 05/13/19 Range/Units 04:13 Sodium 145 (137-145) mmol/L Potassium 4.6 (3.6-5.0) mmol/L Chloride 114.3 H (98-107) mmol/L Carbon Dioxide 17 L (22-30) mmol/L BUN 38 H (7-17) mg/dL Creatinine 2.1 H (0.7-1.2) mg/dL Glucose 64 L (65-100) mg/dL Calcium 9.0 (8.4-10.2) mg/dL Total Bilirubin 0.50 (0.1-1.2) mg/dL AST 18 (5-40) units/L ALT 23 (7-56) units/L Alkaline Phosphatase 95 (35-129) units/L Total Protein 5.9 L (6.3-8.2) g/dL Albumin 2.6 L (3.9-5) g/dL
[2019-05-13] MEDS: APRESOLINE IV PRN ×2 (14:52→18:50)
--- NOTE | 2019-05-13 15:38 | Cat Scan Report ---
CT ABDOMEN AND PELVIS WITHOUT CONTRAST INDICATION: Reevaluate duodenal perforation. COMPARISON: CT of the abdomen and pelvis without contrast from 05/09/2019. TECHNIQUE: Axial, coronal and sagittal CT imaging of the abdomen and pelvis was performed without co ntrast. Lack of intravenous contrast limits evaluation of the vascular and solid organs. Water-solub le contrast was administered orally. All CT scans at this location are performed using CT dose reduct ion for ALARA by means of automated exposure control. FINDINGS: LOWER CHEST: There is a trace right pleural effusion with associated atelectasis. No additional signi ficant abnormality. LIVER: No significant abnormality. BILIARY: No significant abnormality. PANCREAS: No significant abnormality. SPLEEN: Normal in size with stable hypodensities along the mid and lower poles, likely representing c ysts. ADRENALS: No significant abnormality. KIDNEYS AND URETERS: No significant abnormality. GI TRACT: A very small amount of extravasated contrast is again seen along the inferior margin of the right hepatic lobe, consistent with perforation of the duodenum. No extravasation of contrast is see n elsewhere. An NG tube terminates along the gastric body. No acute abnormality of the stomach is see n. No distinct mass is identified along the duodenum. No significant abnormality of the remainder of the small bowel is seen. There is colonic diverticulosis without evidence of diverticulitis. The appe ndix is not seen. PERITONEUM: Free air is again noted along the cole hepatis at the level of the extravasated oral con trast. No other pneumoperitoneum is seen. No free fluid or fluid collection. LYMPH NODES: No significant adenopathy. VASCULATURE: The aorta is normal in caliber with mild to moderate generalized atherosclerosis. URINARY BLADDER: No significant abnormality. REPRODUCTIVE ORGANS: Prior hysterectomy. No significant abnormality. ADDITIONAL FINDINGS: A ventral hernia containing fat is unchanged along the midline of the lower abdo men. SKELETAL SYSTEM: No acute abnormality. There are similar degenerative changes of the spine and pelvis . IMPRESSION: 1. Similar findings of a duodenal perforation. 2. No new acute abnormality of the abdomen or pelvis. Signer Name: Jace Reynoso MD Signed: 05/13/2019 3:34 PM Workstation Name: [id number]
--- NOTE | 2019-05-13 16:40 | Progress Note ---
Assessment and Plan - Patient Problems (1) Acute kidney injury with acute tubular necrosis Current Visit: Yes Status: Acute Plan to address problem: Acute kidney injury probably acute tumor necrosis secondary to volume depletion/sepsis. Kidney function is marginally better. Continue volume repletion. Follow-up electrolytes and renal function. (2) Hyperkalemia Current Visit: Yes Status: Acute Plan to address problem: Potassium has improved with medical treatment. Follow potassium (3) Hyponatremia Current Visit: Yes Status: Acute Plan to address problem: Sodium has improved with volume repletion with isotonic saline. Follow sodium (4) Metabolic acidosis Current Visit: Yes Status: Acute Plan to address problem: Bicarbonate is still low. We'll start by mouth sodium bicarbonate since not improving. Follow acid-base status (5) Elevated transaminase level Current Visit: Yes Status: Acute Plan to address problem: Question ischemic hepatitis. Follow up liver function tests. (6) Anemia Current Visit: Yes Status: Acute Plan to address problem: Follow-up hemoglobin. (7) Perforated abdominal viscus Current Visit: Yes Status: Acute Plan to address problem: Management by general surgeon (8) Chronic kidney disease Current Visit: Yes Status: Acute Plan to address problem: Suspected chronic kidney disease stage unknown. Will request old records from primary care physician Dr. Sargent Subjective Date of service: 05/13/19 Principal diagnosis: RLQ pain 4 days Interval history: Patient seen lying in bed. No family at bedside. No Abdominal pain. No nausea or vomiting. No diarrhea. No fever or chills Objective - Exam Narrative Exam: Elderly -[place] female lying in bed in no acute distress HEENT: NCAT, pink and dry oral mucous membrane Neck: Supple, no venous distention CVS: S1S2 RRR with no murmur, rub or gallop Chest: Clear to auscultation Abdomen: Obese, soft, nontender, no organomegaly, bowel sounds are present Extremities: No edema, no clubbing Genitourinary deferred Neuro: Awake, alert no focal deficits - Vital Signs Vital signs: Vital Signs - 12hr 05/13/19 05/13/19 05/13/19 07:40 13:35 14:52 Temperature 98.9 F 98.4 F Pulse Rate 66 50 L 56 L Respiratory 18 20 Rate Blood Pressure 159/59 198/74 198/81 O2 Sat by Pulse 96 95 Oximetry 05/13/19 16:12 Temperature 97.7 F Pulse Rate 63 Respiratory 18 Rate Blood Pressure 174/65 O2 Sat by Pulse 97 Oximetry - Lab 05/13/19 04:13 05/13/19 04:13 Most recent lab results Calcium 9.0 mg/dL (8.4-10.2) 05/13/19 04:13 Phosphorus 3.30 mg/dL (2.5-4.5) 05/12/19 05:59 Magnesium 1.40 mg/dL (1.7-2.3) L 05/12/19 05:59 Medications & Allergies - Medications Allergies/Adverse Reactions: Allergies No Known Allergies Allergy (Verified 05/09/19 15:38) Home Medications: Home Medications Medication Instructions Recorded Confirmed Last Taken Type Allopurinol [Zyloprim] 300 mg PO QDAY 07/29/13 05/09/19 05/09/19 History Amitriptyline [Elavil] 25 mg PO QHS 07/29/13 05/09/19 05/08/19 History Aspirin [Aspirin BABY CHEW TAB] 81 mg PO QDAY 07/29/13 05/09/19 05/09/19 History Atorvastatin [Lipitor] 40 mg PO QHS 07/29/13 05/09/19 05/09/19 History ISOSORBIDE MONOnitrate [Monoket] 20 mg PO DAILY 07/29/13 05/09/19 05/09/19 History Levothyroxine [Synthroid] 100 mcg PO QAM 07/29/13 05/09/19 05/09/19 History Losartan [Cozaar] 50 mg PO QDAY 07/29/13 05/09/19 05/09/19 History Metoprolol [Lopressor TAB] 50 mg PO BID 07/29/13 05/09/19 05/09/19 History Nitroglycerin [Nitrostat] 0.4 mg SL Q5M PRN 07/29/13 05/09/19 05/09/19 History Furosemide [Lasix] 20 mg PO DAILY 11/24/14 05/09/19 05/09/19 History Oxycodone HCl/Acetaminophen 1 each PO Q6HR PRN #30 tablet 11/24/14 05/09/19 05/09/19 Rx [Percocet 10-325 mg] Zolpidem [Ambien] 5 mg PO QHS PRN 11/24/14 05/09/19 05/09/19 History hydroCHLOROthiazide [Hctz] 25 mg PO QDAY 11/24/14 05/09/19 05/09/19 History Meloxicam [Mobic] 7.5 mg PO QDAY #7 tablet 01/26/19 05/09/19 05/09/19 Rx methOCARBAMOL [Robaxin TAB] 500 mg PO BID #10 tab 01/26/19 05/09/19 05/09/19 Rx Active Medications: Generic Name Dose Route Start Last Admin Trade Name Freq PRN Reason Stop Dose Admin Acetaminophen 650 mg 05/10/19 00:48 Tylenol PO Q4H PRN Pain MILD(1-3)/Fever >100.5/VALERA Hydralazine HCl 10 mg 05/10/19 03:11 05/13/19 14:52 Apresoline IV 10 mg Q4HR PRN Administration Blood Pressure Piperacillin Sod/Tazobactam Sod 3.375 gm in 50 mls @ 100 mls/hr 05/10/19 10:00 05/13/19 10:59 Zosyn/Ns 3.375gm/50ml IV 100 mls/hr Q8H JACIEL Administration Protocol Sodium Chloride 1,000 mls @ 125 mls/hr 05/10/19 04:00 05/12/19 12:48 Nacl 0.9% 1000 Ml IV 125 mls/hr DIRECT JACIEL Administration Morphine Sulfate 2 mg 05/10/19 00:48 05/10/19 10:16 Morphine IV 2 mg Q4H PRN Administration Pain, Moderate (4-6) Ondansetron HCl 4 mg 05/10/19 00:48 Zofran IV Q8H PRN Nausea And Vomiting Pantoprazole Sodium 40 mg 05/10/19 04:00 05/13/19 10:57 Protonix IV 40 mg BID JACIEL Administration Sodium Chloride 10 ml 05/10/19 10:00 05/13/19 10:57 Sodium Chloride Flush Syringe 10 Ml IV 10 ml BID JACIEL Administration Sodium Chloride 10 ml 05/10/19 00:48 Sodium Chloride Flush Syringe 10 Ml IV PRN PRN LINE FLUSH
--- NOTE | 2019-05-13 21:12 | Event Note ---
Date: 05/13/[address] from today. I believe the contrast that is seen outside the duodenum is left over from last time. The extra-intestinal air is less than the last scan. If she still had a patent hole in the duodenum, she would not clinically be looking better and have a normal WBC.She should theoretically be leaking intestinal fluids since admission. She would be septic if that were the case. Will remove NGT and start clears. CBC in AM.
[2019-05-13] MEDS: NACL 0.9% 1000 ML 1,000 ML IV SCH (22:07)
[2019-05-14] MEDS: ZOSYN/NS 3.375GM/50ML 3.375 GM/50 ML BAG IV SCH ×3 (01:37→17:20)
[2019-05-14] MEDS: NACL 0.9% 1000 ML 1,000 ML IV SCH ×2 (07:38→17:22)
[2019-05-14 07:59] LABS: Hematocrit 26.6 % (30.3-42.9); Hemoglobin 8.4 gm/dl (10.1-14.3); Mean Corpuscular HGB Conc 32 % (30-34); Mean Corpuscular Volume 75 fl (79-97); Platelet Count 244 K/mm3 (140-440); Red Blood Count 3.54 M/mm3 (3.65-5.03); Red Cell Distribution Width 18.7 % (13.2-15.2)
--- NOTE | 2019-05-14 08:33 | Progress Note ---
Assessment and Plan Assessment and plan: 79F presents with generalized abdominal pain .Bowel perforation ---Pt stable. Presumably had a peptic ulcer perforation. dw GS, the extravastated contrast is likely from previous perforation. she is clinically well, and not in pain, advance diet. Acute on CKD stage 3 -On IV fluid, we'll monitor creatinine level .Hyperkalemia -Status post treatment in the ED -We'll monitor K level and continue treatment as needed . Elevated troponin -Probably demand ischemia due to the acute process -Patient denies acute chest pain echo wnl, cardioloigy consulted Hyponatremia -On IV fluid, will monitor sodium level .Transaminitis -Likely secondary to the acute process -On IV fluid, we'll monitor levels Mild Hypocalcemia -On IV fluid, will monitor calcium level .Hypertension -BP stable -On PRN IV hydralazine .Hyperlipidemia -cont home meds .Hypothyroidism cont home meds .Obesity with BMI of 38.8 -Lifestyle modification recommended .DVT prophylaxis with SCD And GI priohykaxus History Interval history: she says abdominal pain is controlled on pain meds denies cp, sob or fever Hospitalist Physical - Constitutional Vitals: Temp Pulse Resp BP Pulse Ox 99.0 F 62 20 185/70 96 05/14/19 05:27 05/14/19 05:27 05/14/19 05:27 05/14/19 05:27 05/14/19 05:27 General appearance: Present: no acute distress, well-nourished - EENT Eyes: Present: PERRL ENT: hearing intact - Neck Neck: Present: supple - Respiratory Respiratory effort: normal Respiratory: bilateral: CTA - Cardiovascular Rhythm: regular Heart Sounds: Present: S1 & S2 - Extremities Extremities: no ischemia Peripheral Pulses: within normal limits - Abdominal General gastrointestinal: soft, non-tender - Integumentary Integumentary: Present: clear - Psychiatric Psychiatric: appropriate mood/affect - Neurologic Neurologic: CNII-XII intact Results - Labs CBC & Chem 7: 05/14/19 06:39 05/13/19 04:13 Labs: Laboratory Last Values WBC 7.9 K/mm3 (4.5-11.0) 05/14/19 06:39 RBC 3.54 M/mm3 (3.65-5.03) L 05/14/19 06:39 Hgb 8.4 gm/dl (10.1-14.3) L 05/14/19 06:39 Hct 26.6 % (30.3-42.9) L 05/14/19 06:39 MCV 75 fl (79-97) L 05/14/19 06:39 MCH 24 pg (28-32) L 05/14/19 06:39 MCHC 32 % (30-34) 05/14/19 06:39 RDW 18.7 % (13.2-15.2) H 05/14/19 06:39 Plt Count 244 K/mm3 (140-440) 05/14/19 06:39 Add Manual Diff Complete 05/13/19 04:13 Total Counted 100 05/13/19 04:13 Seg Neuts % (Manual) 79.0 % (40.0-70.0) H 05/13/19 04:13 0 % 05/13/19 04:13 19.0 % (13.4-35.0) 05/13/19 04:13 Reactive Lymphs % (Man) 0 % 05/13/19 04:13 2.0 % (0.0-7.3) 05/13/19 04:13 0 % (0.0-4.3) 05/13/19 04:13 0 % (0.0-1.8) 05/13/19 04:13 0 % 05/13/19 04:13 0 % 05/13/19 04:13 0 % 05/13/19 04:13 0 % 05/13/19 04:13 Nucleated RBC % Not Reportable 05/13/19 04:13 Seg Neutrophils # Man 6.5 K/mm3 (1.8-7.7) 05/13/19 04:13 Band Neutrophils # 0.0 K/mm3 05/13/19 04:13 1.6 K/mm3 (1.2-5.4) 05/13/19 04:13 Abs React Lymphs (Man) 0.0 K/mm3 05/13/19 04:13 0.2 K/mm3 (0.0-0.8) 05/13/19 04:13 0.0 K/mm3 (0.0-0.4) 05/13/19 04:13 0.0 K/mm3 (0.0-0.1) 05/13/19 04:13 0.0 K/mm3 05/13/19 04:13 0.0 K/mm3 05/13/19 04:13 0.0 K/mm3 05/13/19 04:13 Blast Cells # 0.0 K/mm3 05/13/19 04:13 WBC Morphology Not Reportable 05/13/19 04:13 Hypersegmented Neuts Not Reportable 05/13/19 04:13 Hyposegmented Neuts Not Reportable 05/13/19 04:13 Hypogranular Neuts Not Reportable 05/13/19 04:13 Not Reportable 05/13/19 04:13 Not Reportable 05/13/19 04:13 Not Reportable 05/13/19 04:13 Not Reportable 05/13/19 04:13 Not Reportable 05/13/19 04:13 Not Reportable 05/13/19 04:13 Consistent w auto 05/13/19 04:13 Not Reportable 05/13/19 04:13 Plt Clumps, EDTA Not Reportable 05/13/19 04:13 Not Reportable 05/13/19 04:13 Not Reportable 05/13/19 04:13 Not Reportable 05/13/19 04:13 Plt Morphology Comment Not Reportable 05/13/19 04:13 RBC Morphology Not Reportable 05/13/19 04:13 Dimorphic RBCs Not Reportable 05/13/19 04:13 Not Reportable 05/13/19 04:13 1+ 05/13/19 04:13 Not Reportable 05/13/19 04:13 1+ 05/13/19 04:13 Not Reportable 05/13/19 04:13 Not Reportable 05/13/19 04:13 Not Reportable 05/13/19 04:13 Not Reportable 05/13/19 04:13 Not Reportable 05/13/19 04:13 Few 05/13/19 04:13 Rare 05/13/19 04:13 Few 05/13/19 04:13 Not Reportable 05/13/19 04:13 Not Reportable 05/13/19 04:13 Not Reportable 05/13/19 04:13 Not Reportable 05/13/19 04:13 Not Reportable 05/13/19 04:13 Not Reportable 05/13/19 04:13 Few 05/13/19 04:13 Acanthocytes (Spur) Not Reportable 05/13/19 04:13 Rouleaux Not Reportable 05/13/19 04:13 Not Reportable 05/13/19 04:13 Not Reportable 05/13/19 04:13 Not Reportable 05/13/19 04:13 Not Reportable 05/13/19 04:13 Hem Pathologist Commnt No 05/13/19 04:13 Sodium 145 mmol/L (137-145) 05/13/19 04:13 Potassium 4.6 mmol/L (3.6-5.0) 05/13/19 04:13 Chloride 114.3 mmol/L (98-107) H 05/13/19 04:13 Carbon Dioxide 17 mmol/L (22-30) L 05/13/19 04:13 18 mmol/L 05/13/19 04:13 BUN 38 mg/dL (7-17) H 05/13/19 04:13 2.1 mg/dL (0.7-1.2) H 05/13/19 04:13 Estimated GFR 28 ml/min 05/13/19 04:13 18 % 05/13/19 04:13 Glucose 64 mg/dL (65-100) L 05/13/19 04:13 POC Glucose 79 (70-105) 05/13/19 21:32 Calcium 9.0 mg/dL (8.4-10.2) 05/13/19 04:13 Phosphorus 3.30 mg/dL (2.5-4.5) 05/12/19 05:59 Magnesium 1.40 mg/dL (1.7-2.3) L 05/12/19 05:59 0.50 mg/dL (0.1-1.2) 05/13/19 04:13 AST 18 units/L (5-40) 05/13/19 04:13 ALT 23 units/L (7-56) 05/13/19 04:13 95 units/L (35-129) 05/13/19 04:13 0.131 ng/mL (0.00-0.029) H* D 05/10/19 06:19 NT-Pro-B Natriuret Pep 585.0 pg/mL (0-900) 05/09/19 16:16 5.9 g/dL (6.3-8.2) L 05/13/19 04:13 2.6 g/dL (3.9-5) L 05/13/19 04:13 0.8 % 05/13/19 04:13 Triglycerides 110 mg/dL (2-149) 05/09/19 16:16 Cholesterol 114 mg/dL (50-199) 05/09/19 16:16 66 mg/dL (50-130) 05/09/19 16:16 40 mg/dL (40-59) 05/09/19 16:16 2.85 % 05/09/19 16:16 32 units/L (13-60) 05/09/19 16:16 Straw (Yellow) 05/10/19 06:38 Clear (Clear) 05/10/19 06:38 5.0 (5.0-7.0) 05/10/19 06:38 Ur Specific [place] 1.014 (1.003-1.030) 05/10/19 06:38 <15 mg/dl mg/dL (Negative) 05/10/19 06:38 Neg mg/dL (Negative) 05/10/19 06:38 Neg mg/dL (Negative) 05/10/19 06:38 Neg (Negative) 05/10/19 06:38 Neg (Negative) 05/10/19 06:38 Neg (Negative) 05/10/19 06:38 < 2.0 mg/dL (<2.0) 05/10/19 06:38 Ur Leukocyte Esterase Neg (Negative) 05/10/19 06:38 2.0 /HPF (0.0-6.0) 05/10/19 06:38 1.0 /HPF (0.0-6.0) 05/10/19 06:38 U Epithel Cells (Auto) 2.0 /HPF (0-13.0) 05/10/19 06:38 Hep Bs Antigen Non-reactive (Negative) 05/12/19 05:59 Non-reactive (NonReactive) 05/12/19 05:59 Active Medications - Current Medications Current Medications: Generic Name Dose Route Start Last Admin Trade Name Freq PRN Reason Stop Dose Admin Acetaminophen 650 mg 05/10/19 00:48 Tylenol PO Q4H PRN Pain MILD(1-3)/Fever >100.5/VALERA Hydralazine HCl 10 mg 05/10/19 03:11 05/13/19 18:50 Apresoline IV 10 mg Q4HR PRN Administration Blood Pressure Piperacillin Sod/Tazobactam Sod 3.375 gm in 50 mls @ 100 mls/hr 05/10/19 10:00 05/14/19 01:37 Zosyn/Ns 3.375gm/50ml IV 100 mls/hr Q8H JACIEL Administration Protocol Sodium Chloride 1,000 mls @ 125 mls/hr 05/10/19 04:00 05/14/19 07:38 Nacl 0.9% 1000 Ml IV 125 mls/hr DIRECT JACIEL Administration Morphine Sulfate 2 mg 05/10/19 00:48 05/10/19 10:16 Morphine IV 2 mg Q4H PRN Administration Pain, Moderate (4-6) Ondansetron HCl 4 mg 05/10/19 00:48 Zofran IV Q8H PRN Nausea And Vomiting Pantoprazole Sodium 40 mg 05/10/19 04:00 05/13/19 22:09 Protonix IV 40 mg BID JACIEL Administration Sodium Chloride 10 ml 05/10/19 10:00 05/13/19 22:09 Sodium Chloride Flush Syringe 10 Ml IV 10 ml BID JACIEL Administration Sodium Chloride 10 ml 05/10/19 00:48 Sodium Chloride Flush Syringe 10 Ml IV PRN PRN LINE FLUSH
--- NOTE | 2019-05-14 08:44 | Progress Note ---
Assessment and Plan - Patient Problems (1) Perforated abdominal viscus Current Visit: Yes Status: Acute Plan to address problem: Pt stable. Presumably had a peptic ulcer perforation. Patient is clinically stable. Pain remains resolved. WBC normal. No signs to suggest continue leak from perforation. Rec: 1) clears today, will advance tomorrow if there are no issues 2) If tolerating diet tomorrow, should be ready for d/c tomorrow evening. 3) Plan for PO Abx at home to complete 10 day course 4) f/u in office in 10-14 days Pt in agreement with plan. Will follow along. Please call with questions. time=10min Subjective Date of service: 05/14/19 Patient Reports: Positive: no new complaints, feels better (no pain), tolerating liquids well. Negative: nausea, vomiting Objective Vital Signs - 12hr 05/14/19 05/14/19 05/14/19 01:04 05:27 08:15 Temperature 98.6 F 99.0 F 98.6 F Pulse Rate 70 62 74 Respiratory 18 20 18 Rate Blood Pressure 159/72 185/70 163/72 O2 Sat by Pulse 97 96 97 Oximetry - General physical appearance no distress, no pain, other (looks well. Sitting at bedside having breakfast) - Respiratory normal expansion, normal respiratory effort - Abdomen soft, not tender, not distended - Psychiatric oriented to time, oriented to person, oriented to place, speech is normal, memory intact - Labs 05/14/19 06:39 05/13/19 04:13
[2019-05-14] MEDS: PROTONIX IV SCH ×2 (09:49→22:20)
[2019-05-14] MEDS: APRESOLINE IV PRN ×2 (09:49→17:19)
[2019-05-14] MEDS: SODIUM CHLORIDE FLUSH SYRINGE 10 ML IV SCH ×2 (09:49→22:20)
--- NOTE | 2019-05-14 11:04 | Progress Note ---
Assessment and Plan - Patient Problems (1) Acute kidney injury with acute tubular necrosis Current Visit: Yes Status: Acute Plan to address problem: Acute kidney injury probably acute tumor necrosis secondary to volume depletion/sepsis. Kidney function is improving. Continue volume repletion. Follow-up electrolytes and renal function. (2) Hyperkalemia Current Visit: Yes Status: Acute Plan to address problem: Potassium has improved with medical treatment. Follow potassium (3) Hyponatremia Current Visit: Yes Status: Acute Plan to address problem: Sodium has improved with volume repletion with isotonic saline. Follow sodium (4) Metabolic acidosis Current Visit: Yes Status: Acute Plan to address problem: non-anion gap met acidosis due to IV NS. will decrease NS to 75ml/hr and stop IVF completely in AM if po intake is adequate (5) Transaminasemia Current Visit: Yes Status: Acute Plan to address problem: Question ischemic hepatitis. Follow up liver function tests. (6) Anemia Current Visit: Yes Status: Acute Plan to address problem: Follow-up hemoglobin. (7) Perforated abdominal viscus Current Visit: Yes Status: Acute Plan to address problem: Management by general surgeon (8) Chronic kidney disease Current Visit: Yes Status: Acute Plan to address problem: Suspected chronic kidney disease stage unknown. to request old records from primary care physician Dr. Sargent. Subjective Date of service: 05/14/19 Principal diagnosis: RLQ pain 4 days Interval history: Pt awake, alert, tolerating clear liquids Objective - Vital Signs Vital signs: Vital Signs - 12hr 05/14/19 05/14/19 05/14/19 01:04 05:27 08:15 Temperature 98.6 F 99.0 F 98.6 F Pulse Rate 70 62 74 Respiratory 18 20 18 Rate Blood Pressure 159/72 185/70 163/72 O2 Sat by Pulse 97 96 97 Oximetry 05/14/19 09:49 Temperature Pulse Rate 74 Respiratory Rate Blood Pressure 163/72 O2 Sat by Pulse Oximetry - General Appearance General appearance: well-developed, appears stated age, obese EENT: ATNC, PERRL Neck: no JVD Respiratory: Present: Clear to Ascultation Cardiology: regular, S1S2 Gastrointestinal: normoactive bowel sounds, tenderness, obese Integumentary: no rash, other (1+ edema b/l LE ) Neurologic: no focal deficit, alert and oriented x3, strength 5/5, CN 3-12 intact Psychiatric: mood/affect appropriate, cooperative - Lab 05/14/19 06:39 05/13/19 04:13 Most recent lab results Calcium 9.0 mg/dL (8.4-10.2) 05/13/19 04:13 Phosphorus 3.30 mg/dL (2.5-4.5) 05/12/19 05:59 Magnesium 1.40 mg/dL (1.7-2.3) L 05/12/19 05:59 Medications & Allergies - Medications Allergies/Adverse Reactions: Allergies No Known Allergies Allergy (Verified 05/09/19 15:38) Home Medications: Home Medications Medication Instructions Recorded Confirmed Last Taken Type Allopurinol [Zyloprim] 300 mg PO QDAY 07/29/13 05/09/19 05/09/19 History Amitriptyline [Elavil] 25 mg PO QHS 07/29/13 05/09/19 05/08/19 History Aspirin [Aspirin BABY CHEW TAB] 81 mg PO QDAY 07/29/13 05/09/19 05/09/19 History Atorvastatin [Lipitor] 40 mg PO QHS 07/29/13 05/09/19 05/09/19 History ISOSORBIDE MONOnitrate [Monoket] 20 mg PO DAILY 07/29/13 05/09/19 05/09/19 History Levothyroxine [Synthroid] 100 mcg PO QAM 07/29/13 05/09/19 05/09/19 History Losartan [Cozaar] 50 mg PO QDAY 07/29/13 05/09/19 05/09/19 History Metoprolol [Lopressor TAB] 50 mg PO BID 07/29/13 05/09/19 05/09/19 History Nitroglycerin [Nitrostat] 0.4 mg SL Q5M PRN 07/29/13 05/09/19 05/09/19 History Furosemide [Lasix] 20 mg PO DAILY 11/24/14 05/09/19 05/09/19 History Oxycodone HCl/Acetaminophen 1 each PO Q6HR PRN #30 tablet 11/24/14 05/09/19 05/09/19 Rx [Percocet 10-325 mg] Zolpidem [Ambien] 5 mg PO QHS PRN 11/24/14 05/09/19 05/09/19 History hydroCHLOROthiazide [Hctz] 25 mg PO QDAY 11/24/14 05/09/19 05/09/19 History Meloxicam [Mobic] 7.5 mg PO QDAY #7 tablet 01/26/19 05/09/19 05/09/19 Rx methOCARBAMOL [Robaxin TAB] 500 mg PO BID #10 tab 01/26/19 05/09/19 05/09/19 Rx Active Medications: Generic Name Dose Route Start Last Admin Trade Name Freq PRN Reason Stop Dose Admin Acetaminophen 650 mg 05/10/19 00:48 Tylenol PO Q4H PRN Pain MILD(1-3)/Fever >100.5/VALERA Hydralazine HCl 10 mg 05/10/19 03:11 05/14/19 09:49 Apresoline IV 10 mg Q4HR PRN Administration Blood Pressure Piperacillin Sod/Tazobactam Sod 3.375 gm in 50 mls @ 100 mls/hr 05/10/19 10:00 05/14/19 09:49 Zosyn/Ns 3.375gm/50ml IV 100 mls/hr Q8H JACIEL Administration Protocol Sodium Chloride 1,000 mls @ 125 mls/hr 05/10/19 04:00 05/14/19 07:38 Nacl 0.9% 1000 Ml IV 125 mls/hr DIRECT JACIEL Administration Morphine Sulfate 2 mg 05/10/19 00:48 05/10/19 10:16 Morphine IV 2 mg Q4H PRN Administration Pain, Moderate (4-6) Ondansetron HCl 4 mg 05/10/19 00:48 Zofran IV Q8H PRN Nausea And Vomiting Pantoprazole Sodium 40 mg 05/10/19 04:00 05/14/19 09:49 Protonix IV 40 mg BID JACIEL Administration Sodium Chloride 10 ml 05/10/19 10:00 05/14/19 09:49 Sodium Chloride Flush Syringe 10 Ml IV 10 ml BID JACIEL Administration Sodium Chloride 10 ml 05/10/19 00:48 Sodium Chloride Flush Syringe 10 Ml IV PRN PRN LINE FLUSH
[2019-05-14 12:12] LABS: Total Cells Counted 100
[2019-05-14 12:13] LABS: Anisocytosis 1+; Basophils % (Manual) 0 % (0.0-1.8); Hypochromasia 1+; Ovalocytes Few; Platelet Estimate Consistent w Auto; Poikilocytosis Few; Target Cells Few
--- NOTE | 2019-05-14 17:43 | Event Note ---
Date: 05/14/19 Pt doing very well. Will advance to Full Liquids for breakfast. If she does well, may d/c home later tomorrow afternoon. Stay on full liquid diet until seen in the clinic. f/u in 1 week. Please call with questions.
[2019-05-15] MEDS: ZOSYN/NS 3.375GM/50ML 3.375 GM/50 ML BAG IV SCH ×2 (01:42→09:36)
[2019-05-15] MEDS: APRESOLINE IV PRN (01:43)
[2019-05-15] MEDS: NACL 0.9% 1000 ML 1,000 ML IV SCH (01:49)
[2019-05-15] MEDS ORDERED: NITROSTAT SL PRN (07:52)
[2019-05-15] MEDS ORDERED: NON-FORMULARY (Oxycodone Hcl/Acetaminophen [Percocet 10/325 Mg] 1 EACH) PO PRN (07:52)
[2019-05-15] MEDS: PROTONIX IV SCH (09:36)
[2019-05-15] MEDS: SODIUM CHLORIDE FLUSH SYRINGE 10 ML IV SCH (09:37)
--- NOTE | 2019-05-15 09:40 | Progress Note ---
Assessment and Plan - Patient Problems (1) Perforated abdominal viscus Current Visit: Yes Status: Acute Plan to address problem: Pt stable. Presumably had a peptic ulcer perforation. Patient is clinically stable. Pain remains resolved. WBC normal. No signs to suggest continue leak from perforation. Ok to d/c home from my standpoint. Rec: 1) Continue with full liquid diet for 1 week 2) Plan for PO Abx at home to complete 10 day course 4) f/u in office in 10-14 days Pt in agreement with plan. Will follow along. Please call with questions. time=10min Subjective Date of service: 05/15/19 Patient Reports: Positive: feels better, tolerating liquids well, flatus, other (had issue with right eye swelling last night. No issues with abdomen). Negative: nausea, vomiting Objective Vital Signs - 12hr 05/15/19 05/15/19 05/15/19 00:21 01:43 04:22 Temperature 98.2 F 98.8 F Pulse Rate 74 74 89 Respiratory 19 19 Rate Blood Pressure 186/75 Blood Pressure 186/75 172/79 [Right] O2 Sat by Pulse 96 97 Oximetry 05/15/19 05/15/19 08:00 09:36 Temperature 98.3 F Pulse Rate 69 69 Respiratory 20 Rate Blood Pressure 177/79 Blood Pressure 177/79 [Right] O2 Sat by Pulse 99 Oximetry - General physical appearance no distress, no pain, other (looks well) - Respiratory normal expansion, normal respiratory effort - Abdomen soft, not tender, not distended, not guarding, not rigid - Psychiatric oriented to time, oriented to person, oriented to place, speech is normal, memory intact - Labs 05/14/19 06:39 05/13/19 04:13
[2019-05-15] MEDS ORDERED: LASIX PO SCH ×2 (10:00)
[2019-05-15] MEDS ORDERED: COZAAR PO SCH (10:00)
[2019-05-15] MEDS ORDERED: MOBIC PO SCH (10:00)
[2019-05-15] MEDS ORDERED: SYNTHROID PO SCH (10:00)
[2019-05-15] MEDS ORDERED: HCTZ PO SCH (10:00)
[2019-05-15] MEDS ORDERED: MONOKET PO SCH (10:00)
[2019-05-15] MEDS ORDERED: LOPRESSOR PO SCH (10:00)
[2019-05-15] MEDS ORDERED: ZYLOPRIM PO SCH (10:00)
[2019-05-15] MEDS ORDERED: BABY ASPIRIN PO SCH (10:00)
[2019-05-15] MEDS ORDERED: ROBAXIN PO SCH (10:00)
[2019-05-15] MEDS ORDERED: PERCOCET 5/325 PO PRN (10:31)
[2019-05-15] MEDS ORDERED: ROXICODONE PO PRN (10:32)
--- NOTE | 2019-05-15 10:52 | Progress Note ---
Assessment and Plan - Patient Problems (1) Acute kidney injury with acute tubular necrosis Current Visit: Yes Status: Acute Plan to address problem: Acute kidney injury probably acute tumor necrosis secondary to volume depletion/sepsis. Kidney function is improved. Continue volume repletion. Follow-up electrolytes and renal function. stable for discharge from renal stand point with outpatient CKD f/u in 1-2 weeks (2) Hyperkalemia Current Visit: Yes Status: Acute Plan to address problem: Potassium has improved with medical treatment. Follow potassium (3) Hyponatremia Current Visit: Yes Status: Acute Plan to address problem: Sodium has improved with volume repletion with isotonic saline. Follow sodium (4) Metabolic acidosis Current Visit: Yes Status: Acute Plan to address problem: non-anion gap met acidosis due to IV NS. will decrease NS to 75ml/hr and stop IVF completely in AM if po intake is adequate (5) Transaminasemia Current Visit: Yes Status: Acute Plan to address problem: Question ischemic hepatitis. Follow up liver function tests. (6) Anemia Current Visit: Yes Status: Acute Plan to address problem: Follow-up hemoglobin. (7) Perforated abdominal viscus Current Visit: Yes Status: Acute Plan to address problem: Management by general surgeon (8) Chronic kidney disease Current Visit: Yes Status: Acute Subjective Date of service: 05/15/19 (') Principal diagnosis: RLQ pain 4 days Interval history: Pt awake, alert, tolerating clear liquids Objective - Vital Signs Vital signs: Vital Signs - 12hr 05/15/19 05/15/19 05/15/19 00:21 01:43 04:22 Temperature 98.2 F 98.8 F Pulse Rate 74 74 89 Respiratory 19 19 Rate Blood Pressure 186/75 Blood Pressure 186/75 172/79 [Right] O2 Sat by Pulse 96 97 Oximetry 05/15/19 05/15/19 08:00 09:36 Temperature 98.3 F Pulse Rate 69 69 Respiratory 20 Rate Blood Pressure 177/79 Blood Pressure 177/79 [Right] O2 Sat by Pulse 99 Oximetry - General Appearance General appearance: well-developed, well-nourished, appears stated age, obese EENT: ATNC, PERRL, mucous membranes moist Neck: no JVD Respiratory: Present: Clear to Ascultation Cardiology: regular, S1S2 Gastrointestinal: normoactive bowel sounds, obese Integumentary: no rash, other (no edema ) Neurologic: no focal deficit, alert and oriented x3, strength 5/5, CN 3-12 intact Psychiatric: mood/affect appropriate, cooperative - Lab 05/14/19 06:39 05/13/19 04:13 Most recent lab results Calcium 9.0 mg/dL (8.4-10.2) 05/13/19 04:13 Phosphorus 3.30 mg/dL (2.5-4.5) 05/12/19 05:59 Magnesium 1.40 mg/dL (1.7-2.3) L 05/12/19 05:59 Medications & Allergies - Medications Allergies/Adverse Reactions: Allergies No Known Allergies Allergy (Verified 05/09/19 15:38) Home Medications: Home Medications Medication Instructions Recorded Confirmed Last Taken Type Allopurinol [Zyloprim] 300 mg PO QDAY 07/29/13 05/09/19 05/09/19 History Amitriptyline [Elavil] 25 mg PO QHS 07/29/13 05/09/19 05/08/19 History Aspirin [Aspirin BABY CHEW TAB] 81 mg PO QDAY 07/29/13 05/09/19 05/09/19 History Atorvastatin [Lipitor] 40 mg PO QHS 07/29/13 05/09/19 05/09/19 History ISOSORBIDE MONOnitrate [Monoket] 20 mg PO DAILY 07/29/13 05/09/19 05/09/19 H istory Levothyroxine [Synthroid] 100 mcg PO QAM 07/29/13 05/09/19 05/09/19 History Losartan [Cozaar] 50 mg PO QDAY 07/29/13 05/09/19 05/09/19 History Metoprolol [Lopressor TAB] 50 mg PO BID 07/29/13 05/09/19 05/09/19 History Nitroglycerin [Nitrostat] 0.4 mg SL Q5M PRN 07/29/13 05/09/19 05/09/19 History Furosemide [Lasix] 20 mg PO DAILY 11/24/14 05/09/19 05/09/19 History Oxycodone HCl/Acetaminophen 1 each PO Q6HR PRN #30 tablet 11/24/14 05/09/19 05/09/19 Rx [Percocet 10-325 mg] Zolpidem [Ambien] 5 mg PO QHS PRN 11/24/14 05/09/19 05/09/19 History hydroCHLOROthiazide [Hctz] 25 mg PO QDAY 11/24/14 05/09/19 05/09/19 History Meloxicam [Mobic] 7.5 mg PO QDAY #7 tablet 01/26/19 05/09/19 05/09/19 Rx methOCARBAMOL [Robaxin TAB] 500 mg PO BID #10 tab 01/26/19 05/09/19 05/09/19 Rx Active Medications: Generic Name Dose Route Start Last Admin Trade Name Freq PRN Reason Stop Dose Admin Acetaminophen 650 mg 05/10/19 00:48 Tylenol PO Q4H PRN Pain MILD(1-3)/Fever >100.5/VALERA Allopurinol 300 mg 05/15/19 10:00 05/15/19 09:37 Zyloprim PO 300 mg QDAY JACIEL Administration Amitriptyline HCl 25 mg 05/15/19 22:00 Elavil PO QHS JACIEL Aspirin 81 mg 05/15/19 10:00 05/15/19 09:37 Baby Aspirin PO 81 mg QDAY JACIEL Administration Atorvastatin Calcium 40 mg 05/15/19 22:00 Lipitor PO QHS JACIEL Furosemide 20 mg 05/15/19 10:00 05/15/19 09:37 Lasix PO 20 mg QAM JACIEL Administration Hydralazine HCl 10 mg 05/10/19 03:11 05/15/19 01:43 Apresoline IV 10 mg Q4HR PRN Administration Blood Pressure Hydrochlorothiazide 25 mg 05/15/19 10:00 05/15/19 09:37 Hctz PO 25 mg QDAY JACIEL Administration Piperacillin Sod/Tazobactam Sod 3.375 gm in 50 mls @ 100 mls/hr 05/10/19 10:00 05/15/19 09:36 Zosyn/Ns 3.375gm/50ml IV 100 mls/hr Q8H JACIEL Administration Protocol Sodium Chloride 1,000 mls @ 75 mls/hr 05/10/19 04:00 05/15/19 01:49 Nacl 0.9% 1000 Ml IV 125 mls/hr DIRECT JACIEL Administration Isosorbide Mononitrate 20 mg 05/15/19 10:00 Monoket PO DAILY JACIEL Levothyroxine Sodium 100 mcg 05/15/19 10:00 05/15/19 09:36 Synthroid PO 100 mcg DAILY@0600 JACIEL Administration Losartan Potassium 50 mg 05/15/19 10:00 05/15/19 09:36 Cozaar PO 50 mg QDAY JACIEL Administration Meloxicam 7.5 mg 05/15/19 10:00 Mobic PO QDAY JACIEL Methocarbamol 500 mg 05/15/19 10:00 Robaxin PO BID JACIEL Metoprolol Tartrate 50 mg 05/15/19 10:00 05/15/19 09:37 Lopressor PO 50 mg BID JACIEL Administration Morphine Sulfate 2 mg 05/10/19 00:48 05/10/19 10:16 Morphine IV 2 mg Q4H PRN Administration Pain, Moderate (4-6) Nitroglycerin 0.4 mg 05/15/19 07:52 Nitrostat SL Q5M PRN Chest Pain Ondansetron HCl 4 mg 05/10/19 00:48 Zofran IV Q8H PRN Nausea And Vomiting Oxycodone HCl 5 mg 05/15/19 10:32 Roxicodone PO Q6H PRN Pain, Moderate (4-6) Oxycodone/Acetaminophen 1 tab 05/15/19 10:31 Percocet 5/325 PO Q6H PRN Pain, Moderate (4-6) Pantoprazole Sodium 40 mg 05/10/19 04:00 05/15/19 09:36 Protonix IV 40 mg BID JACIEL Administration Sodium Chloride 10 ml 05/10/19 10:00 05/15/19 09:37 Sodium Chloride Flush Syringe 10 Ml IV 10 ml BID JACIEL Administration Sodium Chloride 10 ml 05/10/19 00:48 Sodium Chloride Flush Syringe 10 Ml IV PRN PRN LINE FLUSH Zolpidem Tartrate 5 mg 05/15/19 22:00 Ambien PO QHS PRN Sleep
--- NOTE | 2019-05-15 11:52 | Consultation ---
History of Present Illness Consult date: 05/15/19 Consult reason: elevated troponin History of present illness: This is a 79-year old woman who presented 05/09 with abdominal pain, admitted with perforated abdominal viscus. Patient was evaluated by surgery who has recommended conservative management. On presentation initial labs revealed acute kidney injury with a creatinine of 2.9, volume depletion and hyperkalemia, potassium of 6.0. There was also elevation of troponin, likely in the setting of acute kidney injury. There was no complaints of chest pain or shortness of breath. An ECG done in the emergency department is sinus rhythm, no acute ischemic changes. Patient is a poor historian and is unable to articulate prior cardiac history. Patient has not had any recent cardiac workup but does report undergoing a cardiac cath 10 years ago. Details of this cardiac cath is unavailable for review. Patient reports she has remained chest pain free over the hospital course. Further evaluation with an echocardiogram, showed a normal left ventricular systolic function, ejection fraction 55-60%. Past History Social history: lives with family (lives with daughter. originally from [place]). denies: smoking, alcohol abuse, prescription drug abuse, IV drug use Family history: diabetes (Grandmother), stroke (mother of a stroke at age 84), other (father of conditions of COPD. 2 brothers. One of lung cancer. 3 sisters have she does not know the cause of ) Medications and Allergies Allergies Allergy/AdvReac Type Severity Reaction Status Date / Time No Known Allergies Allergy Verified 05/09/19 15:38 Home Medications Medication Instructions Recorded Confirmed Last Taken Type Allopurinol [Zyloprim] 300 mg PO QDAY 07/29/13 05/09/19 05/09/19 History Amitriptyline [Elavil] 25 mg PO QHS 07/29/13 05/09/19 05/08/19 History Aspirin [Aspirin BABY CHEW TAB] 81 mg PO QDAY 07/29/13 05/09/19 05/09/19 History Atorvastatin [Lipitor] 40 mg PO QHS 07/29/13 05/09/19 05/09/19 History ISOSORBIDE MONOnitrate [Monoket] 20 mg PO DAILY 07/29/13 05/09/19 05/09/19 History Levothyroxine [Synthroid] 100 mcg PO QAM 07/29/13 05/09/19 05/09/19 History Losartan [Cozaar] 50 mg PO QDAY 07/29/13 05/09/19 05/09/19 History Metoprolol [Lopressor TAB] 50 mg PO BID 07/29/13 05/09/19 05/09/19 History Nitroglycerin [Nitrostat] 0.4 mg SL Q5M PRN 07/29/13 05/09/19 05/09/19 History Furosemide [Lasix] 20 mg PO DAILY 11/24/14 05/09/19 05/09/19 History Oxycodone HCl/Acetaminophen 1 each PO Q6HR PRN #30 tablet 11/24/14 05/09/19 05/09/19 Rx [Percocet 10-325 mg] Zolpidem [Ambien] 5 mg PO QHS PRN 11/24/14 05/09/19 05/09/19 History hydroCHLOROthiazide [Hctz] 25 mg PO QDAY 11/24/14 05/09/19 05/09/19 History Meloxicam [Mobic] 7.5 mg PO QDAY #7 tablet 01/26/19 05/09/19 05/09/19 Rx methOCARBAMOL [Robaxin TAB] 500 mg PO BID #10 tab 01/26/19 05/09/19 05/09/19 Rx Active Meds: Active Medications Acetaminophen (Tylenol) 650 mg PO Q4H PRN PRN Reason: Pain MILD(1-3)/Fever >100.5/VALERA Allopurinol (Zyloprim) 300 mg PO QDAY [facility] Last Admin: 05/15/19 09:37 Dose: 300 mg Documented by: Amitriptyline HCl (Elavil) 25 mg PO QHS [facility] Aspirin (Baby Aspirin) 81 mg PO QDAY [facility] Last Admin: 05/15/19 09:37 Dose: 81 mg Documented by: Atorvastatin Calcium (Lipitor) 40 mg PO QHS [facility] Furosemide (Lasix) 20 mg PO QAM [facility] Last Admin: 05/15/19 09:37 Dose: 20 mg Documented by: Hydralazine HCl (Apresoline) 10 mg IV Q4HR PRN PRN Reason: Blood Pressure Last Admin: 05/15/19 01:43 Dose: 10 mg Documented by: Hydrochlorothiazide (Hctz) 25 mg PO QDAY [facility] Last Admin: 05/15/19 09:37 Dose: 25 mg Documented by: Piperacillin Sod/Tazobactam Sod (Zosyn/Ns 3.375gm/50ml) 3.375 gm in 50 mls @ 100 mls/hr IV Q8H [facility]; Protocol Last Admin: 05/15/19 09:36 Dose: 100 mls/hr Documented by: Sodium Chloride (Nacl 0.9% 1000 Ml) 1,000 mls @ 75 mls/hr IV DIRECT [facility] Last Admin: 05/15/19 01:49 Dose: 125 mls/hr Documented by: Isosorbide Mononitrate (Monoket) 20 mg PO DAILY [facility] Levothyroxine Sodium (Synthroid) 100 mcg PO DAILY@0600 [facility] Last Admin: 05/15/19 09:36 Dose: 100 mcg Documented by: Losartan Potassium (Cozaar) 50 mg PO QDAY [facility] Last Admin: 05/15/19 09:36 Dose: 50 mg Documented by: Meloxicam (Mobic) 7.5 mg PO QDAY [facility] Last Admin: 05/15/19 11:47 Dose: 7.5 mg Documented by: Methocarbamol (Robaxin) 500 mg PO BID [facility] Last Admin: 05/15/19 11:47 Dose: 500 mg Documented by: Metoprolol Tartrate (Lopressor) 50 mg PO BID [facility] Last Admin: 05/15/19 09:37 Dose: 50 mg Documented by: Morphine Sulfate (Morphine) 2 mg IV Q4H PRN PRN Reason: Pain, Moderate (4-6) Last Admin: 05/10/19 10:16 Dose: 2 mg Documented by: Nitroglycerin (Nitrostat) 0.4 mg SL Q5M PRN PRN Reason: Chest Pain Ondansetron HCl (Zofran) 4 mg IV Q8H PRN PRN Reason: Nausea And Vomiting Oxycodone HCl (Roxicodone) 5 mg PO Q6H PRN PRN Reason: Pain, Moderate (4-6) Oxycodone/Acetaminophen (Percocet 5/325) 1 tab PO Q6H PRN PRN Reason: Pain, Moderate (4-6) Pantoprazole Sodium (Protonix) 40 mg IV BID [facility] Stop: 05/15/19 23:59 Last Admin: 05/15/19 09:36 Dose: 40 mg Documented by: Pantoprazole Sodium (Protonix) 40 mg PO BID [facility] Sodium Chloride (Sodium Chloride Flush Syringe 10 Ml) 10 ml IV BID JACIEL Last Admin: 05/15/19 09:37 Dose: 10 ml Documented by: Sodium Chloride (Sodium Chloride Flush Syringe 10 Ml) 10 ml IV PRN PRN PRN Reason: LINE FLUSH Zolpidem Tartrate (Ambien) 5 mg PO QHS PRN PRN Reason: Sleep Physical Examination Vital Signs Temp Pulse Resp BP Pulse Ox 97.7 F 60 18 140/63 97 05/09/19 16:00 05/09/19 16:00 05/09/19 16:00 05/09/19 16:00 05/09/19 16:00 General appearance: no acute distress HEENT: Positive: PERRL Cardiac: Positive: Reg Rate and Rhythm Lungs: Positive: Decreased Breath Sounds Neuro: Positive: Grossly Intact Extremities: Absent: edema Results 05/14/19 06:39 05/13/19 04:13 Assessment and Plan Perforated abdominal viscus per surgery Elevated troponin, likely due to renal failure pt denies chest pain normal LVEF 55-60% by echo this admission Hypertension Acute kidney injury
--- NOTE | 2019-05-15 12:28 | Discharge Summary ---
Providers - Providers Date of Admission: 05/10/19 00:48 Date of discharge: 05/15/19 Attending physician: INA VELAZQUEZ 05/09/19 19:25 Consult to Physician [CONS] Stat Comment: Dr. Ritter spoke with Dr. Mayer @ [id number] Consulting Provider: MONTANA MAYER Physician Instructions: Reason For Exam: acute renal failure, acute hyperkalemia 05/09/19 22:01 Consult to Physician [CONS] Stat Comment: Dr. Shaffer spoke with Dr. iJmenez @ [id number] Consulting Provider: SU JIMENEZ Physician Instructions: Reason For Exam: abnormal CT 05/14/19 10:11 Physical Therapy Evaluation and Treat [CONS] Routine Comment: Reason For Exam: difficulty in ambulation/falls 05/14/19 23:44 Consult to Physician [CONS] Routine Comment: Consulting Provider: JOSE RHODES Physician Instructions: Reason For Exam: elevated troponin Primary care physician: ALYSON CALLE Hospitalization Condition: Stable Disposition: - TO HOME OR SELFCARE Time spent for discharge: 32 min Core Measure Documentation - Palliative Care Palliative Care/ Comfort Measures: Not Applicable - Core Measures Any of the following diagnoses?: none Exam - Constitutional Vitals: Temp Pulse Resp BP Pulse Ox 98.3 F 69 20 177/79 99 05/15/19 08:00 05/15/19 09:36 05/15/19 08:00 05/15/19 09:36 05/15/19 08:00 General appearance: Present: no acute distress, well-nourished - EENT Eyes: Present: PERRL, EOM intact - Neck Neck: Present: supple, normal ROM - Respiratory Respiratory effort: normal Respiratory: bilateral: diminished, negative: rales, rhonchi, wheezing - Cardiovascular Rhythm: regular Heart Sounds: Present: S1 & S2 - Extremities Extremities: no ischemia, No edema - Abdominal General gastrointestinal: Present: soft, non-tender, non-distended, normal bowel sounds - Integumentary Integumentary: Present: clear, warm - Musculoskeletal Musculoskeletal: strength equal bilaterally - Psychiatric Psychiatric: appropriate mood/affect, cooperative - Neurologic Neurologic: CNII-XII intact, moves all extremities Plan Activity: advance as tolerated, fall precautions Diet: other (full liquids for 1 week and advance as tolerated) Additional Instructions: Advised full liquid diet for 1 week and later advance as tolerated. 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
[2019-05-15 12:50] VITALS: BP 153/75
[2019-05-15] MEDS ORDERED: AMBIEN PO PRN (22:00)
[2019-05-15] MEDS ORDERED: ELAVIL PO SCH (22:00)
[2019-05-16] MEDS ORDERED: PROTONIX PO SCH (10:00)
== END 2019-05-15 17:05 | disposition home health service (06) | DRG 871 ==
LOC: ED 15:38 → 3B-SURG 05-10 00:48
PROVIDERS: ADMIT Internal Medicine; ATTEND Internal Medicine
PROC: 0D9670Z Drainage of Stomach with Drainage Device, Via Natural or Artificial Opening (ICD-10-PCS; principal; 2019-05-10)
DX: A41.9 Sepsis, unspecified organism (principal); K26.5 Chronic or unspecified duodenal ulcer with perforation; N17.0 Acute kidney failure with tubular necrosis; E87.1 Hypo-osmolality and hyponatremia; Z68.41 Body mass index [BMI] 40.0-44.9, adult; E87.2 Acidosis; N18.3 Chronic kidney disease, stage 3 (moderate); E66.01 Morbid (severe) obesity due to excess calories; E83.52 Hypercalcemia; I25.10 Atherosclerotic heart disease of native coronary artery without angina pectoris; E87.5 Hyperkalemia; E78.5 Hyperlipidemia, unspecified; E86.9 Volume depletion, unspecified; K21.9 Gastro-esophageal reflux disease without esophagitis; E78.00 Pure hypercholesterolemia, unspecified; K75.89 Other specified inflammatory liver diseases; M10.9 Gout, unspecified; E03.9 Hypothyroidism, unspecified; Z83.3 Family history of diabetes mellitus; Z79.899 Other long term (current) drug therapy; Z71.3 Dietary counseling and surveillance; Z79.82 Long term (current) use of aspirin; Z90.710 Acquired absence of both cervix and uterus; Z82.49 Family history of ischemic heart disease and other diseases of the circulatory system; Z82.3 Family history of stroke; Z80.1 Family history of malignant neoplasm of trachea, bronchus and lung; Z82.5 Family history of asthma and other chronic lower respiratory diseases; I25.2 Old myocardial infarction
CPT/HCPCS: 36415; 74022; 74176; 80048; 80053; 80061; 81001; 82962; 83690; 83735; 83880; 84100; 84484; 85007; 85025; 86706; 86803; 93005; 93010; 93306; 94644; G0378; C9113; J0360; J1815; J2270; J2543; J7030